=== PATIENT | male | born 1950 | race Caucasian/White ===

== ENCOUNTER 2018-10-24 02:25 | Inpatient (IN) | payer MEDICARE, MEDICAID ==
[~2018-10-24] VITALS: Ht 170.2 cm; Wt 60.8 kg
--- NOTE | 2018-10-24 02:50 | NUR ---
PT BIBPA FOR AGGRESSIVE BEHAVIOR/SPITTING ON STAFF/NON-COMPLIANCE. PT AXO2. RESPIRATIONS EVEN AND UNLABORED. PT PUT ON THE CURRICULUM DEVELOPMENT SPECIALIST AND PULSE OX. PENDING EVAL FROM ER .
--- NOTE | 2018-10-24 02:55 | NUR ---
Pt verbally aggressive, non compliant with giving urine or lab draw. Pt spitting towards staff. ER MD notified.
[2018-10-24] MEDS ORDERED: OLANZAPINE 10 MG VIAL IM ONE ×2 (03:08→03:30)
--- NOTE | 2018-10-24 04:00 | NUR ---
LABS DRAWN AND SENT TO LAB. PT REFUSING URINE SAMPLE. RADHA GALARZA AWARE.
[2018-10-24 04:18] LABS: BASOPHILS % (AUTO) 0.6 % (0.0-2.0); EOSINOPHILS % (AUTO) 4.6 % (0.0-6.0); HEMATOCRIT 34 % (39-51); HEMOGLOBIN 11.6 g/dL (13.5-17.5); LYMPHOCYTES # (AUTO) 0.7 /CMM (0.8-4.8); LYMPHOCYTES % (AUTO) 18.9 % (20.0-44.0); MEAN CORPUSCULAR HGB CONC 34 g/dl (31.0-36.0); MEAN CORPUSCULAR VOLUME 105 fL (80-96); MONOCYTES # (AUTO) 0.5 /CMM (0.1-1.30); MONOCYTES % (AUTO) 14.7 % (2.0-12.0); NEUTROPHILS # (AUTO) 2.3 /CMM (1.8-8.9); NEUTROPHILS % (AUTO) 61.2 % (43.0-81.0); PLATELET COUNT (AUTO) 104 /CMM (150-450); RED BLOOD CELL COUNT(AUTO) 3.25 MIL/uL (4.5-6.0); WHITE BLOOD COUNT (AUTO) 3.7 K/uL (4.3-11.0)
[2018-10-24 04:26] LABS: CALCIUM, SERUM 9.9 mg/dL (8.5-10.1); CARBON DIOXIDE 29 mmol/L (21-32); CHLORIDE 102 mmol/L (98-107); CREATININE 5.2 mg/dL (0.6-1.3); GLUCOSE 87 mg/dL (74-106); POTASSIUM 4.3 mmol/L (3.5-5.1); SODIUM SERUM 140 mmol/L (136-145); UREA NITROGEN, BLOOD 40 mg/dL (7-18)
--- NOTE | 2018-10-24 04:30 | NUR ---
ART PAGED FOR EVALUATION.
[2018-10-24 04:32] LABS: ACETAMINOPHEN 2 ug/ml (10-30); ALANINE AMINOTRANSFERASE 12 U/L (12-78); ALBUMIN 3.3 g/dL (3.4-5.0); ALCOHOL, BLOOD < 3 mg/dL (0-0); ALKALINE PHOSPHATASE 108 U/L (46-116); ASPARTATE AMINOTRANSFERASE 14 U/L (15-37); BILIRUBIN,DIRECT 0.1 mg/dL (0.0-0.2); BILIRUBIN,TOTAL 0.5 mg/dL (0.2-1.0); SALICYLATE 2.1 mg/dL (2.8-20.0); TOTAL PROTEIN, SERUM 6.2 g/dL (6.4-8.2)
--- NOTE | 2018-10-24 04:50 | NUR ---
PT HYPERTENSIVE ON THE MONITOR. ER MD AWARE. WILL CARRY OUT ORDERS.
[2018-10-24] MEDS ORDERED: CLONIDINE HCL 0.1 MG TABLET ONE (05:06)
[2018-10-24] MEDS ORDERED: CLONIDINE HCL 0.1 MG TABLET PO ONE (05:30)
--- NOTE | 2018-10-24 05:45 | NUR ---
PT RESTING IN BED EASILY AROUSABLE, NAD NOTED. WILL CONTINUE TO MONITOR.
--- NOTE | 2018-10-24 07:32 | NUR ---
REPORT GIVEN TO JAYDEN DYER FOR VIKRAM.
--- NOTE | 2018-10-24 07:33 | NUR ---
REPORT RECEIVED FROM YESI DYER FOR VIKRAM
--- NOTE | 2018-10-24 07:39 | NUR ---
LUNA CALLED ITS JANETH
[2018-10-24] MEDS ORDERED: AZIT250T13 PO (07:48)
[2018-10-24] MEDS ORDERED: CARV6.252 PO (07:48)
[2018-10-24] MEDS ORDERED: ASPI-1169 PO (07:48)
[2018-10-24] MEDS ORDERED: FOLI0.8T23 PO (07:48)
[2018-10-24] MEDS ORDERED: IPRA4AER IH (07:48)
[2018-10-24] MEDS ORDERED: AMLO10TA7 PO (07:48)
[2018-10-24] MEDS ORDERED: ALBU8.5H8 IH (07:48)
[2018-10-24] MEDS ORDERED: CLON2TAB PO (07:48)
[2018-10-24] MEDS ORDERED: SEVE800T8 PO (07:48)
[2018-10-24] MEDS ORDERED: ATOR40TA PO (07:48)
[2018-10-24] MEDS ORDERED: RISP0.253 PO (07:48)
[2018-10-24] MEDS ORDERED: OLAN2.5T3 PO (07:48)
[2018-10-24] MEDS ORDERED: CLON0.3P TD (07:48)
[2018-10-24] MEDS ORDERED: ACET-2605 PO (07:49)
[2018-10-24] MEDS ORDERED: PANT40TA2 PO (07:49)
[2018-10-24] MEDS ORDERED: BENZ-13 PO (07:49)
[2018-10-24] MEDS ORDERED: GUAI5SYR PO (07:49)
[2018-10-24] MEDS ORDERED: ACET-868 PO (07:49)
--- NOTE | 2018-10-24 08:48 | NUR ---
PT GOING TO ROOM 322.2
[2018-10-24] MEDS ORDERED: CARVEDILOL 6.25 MG TABLET ONE (08:54)
[2018-10-24] MEDS ORDERED: AMLODIPINE BESYLATE 5 MG TABLET ONE (08:55)
[2018-10-24] MEDS ORDERED: AMLODIPINE BESYLATE 5 MG TABLET PO ONE (09:00)
[2018-10-24] MEDS ORDERED: CARVEDILOL 6.25 MG TABLET PO ONE (09:00)
--- NOTE | 2018-10-24 09:03 | NUR ---
REPORT GIVEN TO THERESE DYER OF TELE UNIT
--- NOTE | 2018-10-24 09:07 | NUR ---
URINE SPECIMEN COLLECTED SENT TO LAB
[2018-10-24 09:27] LABS: APPEARANCE,URINE Clear (CLEAR); BILIRUBIN,URINE Negative (NEGATIVE); BLOOD, URINE Trace-intact Ery/uL (NEGATIVE); COLOR,URINE Yellow (YELLOW); KETONES,URINE Negative (NEGATIVE); LEUKOCYTE ESTERASE ,URINE Trace (NEGATIVE); NITRITE, URINE Negative (NEGATIVE); PH,URINE 8.5 (5.0-8.0); PROTEIN,URINE 100 mg/dl (NEGATIVE); UGLUCOSE Negative (NEGATIVE); UROBILINOGEN,URINE 0.2 EU/dL (0.2)
[2018-10-24 09:29] LABS: BACTERIA,URINE None seen /HPF (None Seen); RBC,URINE 0-2 /HPF (0-2); SQUAMOUS EPITHELIAL CELL,UR Few /HPF (None Seen); WBC,URINE 0-2 /HPF (0-3)
[2018-10-24] MEDS ORDERED: ONDANSETRON HCL/PF 4 MG/2 ML VIAL IVP PRN (10:00)
[2018-10-24] MEDS ORDERED: GUAIFENESIN/D-METHORPHAN HB 5 ML UDC PO PRN (10:00)
[2018-10-24] MEDS ORDERED: ACETAMINOPHEN 325 MG TABLET PO PRN (10:00)
[2018-10-24] MEDS ORDERED: ZOLPIDEM TARTRATE 5 MG TABLET PO PRN (10:00)
[2018-10-24] MEDS ORDERED: Z GUARD REMEDY 2 OZ OINT TP PRN (10:00)
--- NOTE | 2018-10-24 11:03 | NUR ---
DIRECTOR OF HEALTHCARE SYSTEMS ADMITTING NOTES PATIENT ADMITTED TO UNIT VIA GURNEY AT 1000 ACCOMPANIED BY Pawel CARMONA. A/O X3-4. ABLE TO VERBALIZED NEEDS BUT VERBALLY ABUSIVE AND REFUSED TO ANSWER SOME QUESTIONS DURING ADMISSION. PT ORIENTED TO UNIT/ROOM AND STAFF. ON ROOM AIR, TOLERATING WELL WITH NO SOB NOTED. SP02 97%. V/S TAKEN AND RECORDED. PT REFUSED TO PLACE TELEMONITORING AT THIS TIME, WILL TRY AGAIN AT LATER TIME. PT WITH NO C/O CARDIAC DISTRESS VOICED. PHOTOS OF SKIN ISSUES TAKEN AND FILED ON CHART. PT WITH IV ACCESS ON RIGHT HAND G #20 INTACT AND PATENT. PERMA CATH IN PLACE TO RCW, DRESSING C/D/I. ABDOMEN SOFT, NONTENDER AND NON-DISTENDED WITH POSITIVE BOWEL SOUNDS. LUNGS CLEAR BILATERALLY ON AUSCULTATION. SAFETY MEASURES INITIATED. BED PLACED IN LOW LOCKED POSITION WITH SR UP X2. CALL LIGHT IN REACH. WILL CONTINUE TO MONITOR PT CLOSELY.
[2018-10-24] MEDS: VIT B CMPLX 3/FA/VIT C/BIOTIN 1 TAB TABLET PO SCH (11:27)
[2018-10-24 12:00] VITALS: BP 146/85
[2018-10-24 12:45] LABS: MAGNESIUM 1.4 mg/dL (1.8-2.4); PHOSPHORUS 3.6 mg/dL (2.5-4.9)
[2018-10-24] MEDS ORDERED: Medication Not On Formulary EA (Ipratropium/Albuterol Sulfate (Combivent Respimat 20-100 IH SCH (13:00)
[2018-10-24] MEDS: SEVELAMER CARBONATE 800 MG TABLET PO SCH ×2 (13:00→17:17)
[2018-10-24] MEDS: ALBUTEROL FS 2.5 MG/3 ML VIAL.NEB NEB SCH ×2 (13:56→19:30)
[2018-10-24] MEDS: IPRATROPIUM NEB FS 0.5 MG/2.5 ML AMPUL.NEB NEB SCH ×2 (13:56→19:30)
[2018-10-24] MEDS: Magnesium 1GM/D5W 100ML PREMIX 100 ML IV SCH ×2 (15:12→16:13)
[2018-10-24 16:00] VITALS: BP 166/89
--- NOTE | 2018-10-24 16:31 | NUR ---
RN NOTES PATIENT WITH LOW LEVEL MG 1. 4 TODAY, REPLACED WITH MAGNESIUM 1MG/100D5W X 2 DOSES. WILL CONTINUE TO MONITOR
[2018-10-24] MEDS ORDERED: clonazePAM 1 MG TABLET PO SCH ×2 (17:00)
[2018-10-24] MEDS: OLANZAPINE 2.5 MG TABLET PO SCH (17:17)
[2018-10-24] MEDS: CARVEDILOL 6.25 MG TABLET PO SCH (17:18)
--- NOTE | 2018-10-24 17:31 | NUR ---
RN NOTES TRIED AGAIN TO PLACE TELEMONITORING ON PATIENT BUT STILL REFUSING. NO COMPLAINTS OR S/S OF CARDIAC DISTRESS NOTED. ONLINE CONTENT EDITOR VICTORINO MADE AWARE. WILL CONTINUE TO MONITOR PT'S STATUS.
--- NOTE | 2018-10-24 17:46 | NUR ---
RN NOTES CALLED CT SCAN AND SPOKE TO PATY REGARDING PT'S CT OF HEAD WITHOUT CONTRAST AND HE SAID THAT HE WILL DO IT AFTER DINNER.
[2018-10-24] MEDS ORDERED: risperiDONE 1 MG TABLET PO SCH (18:00)
--- NOTE | 2018-10-24 18:39 | NUR ---
LAUNDRY HOUSEKEEPING AIDE CLOSING NOTES PATIENT ASLEEP AT THIS TIME, EASILY AWAKENS. HOB ELEVATED. ON ROOM AIR, TOLERATING WELL WITH NO ACUTE RESPIRATORY DISTRESS NOTED. IV ACCESS ON RIGHT HAND G#20 INTACT AND PATENT, EASILY FLUSHED WITH NS. PERMA CATH ON RCW IN PLACE WITH DRESSING C/D/I. ALL NEEDS AND CARE PROVIDED WELL. ALL SAFETY MEASURES KEPT IN PLACE. BED IN LOW LOCKED POSITION WITH SR UP X2. CALL LIGHT IN REACH. WILL ENDORSE TO PLANNING AND ANALYSIS MANAGER NURSE FOR VIKRAM.
--- NOTE | 2018-10-24 19:45 | NUR ---
rn initial notes: received report from carlota kulkarni. pt in bed, calm at this time after taking medications. on ra respiration even and unlabored. appears calm and comfortable at this time. pt refused heart monitoring as pt admitted for tele, made aware. per report pt admitted with very aggressive behavior, throwing things to the staff, non compliant, seen by psych md with order for 1:1 sitter and medications. per dr tono ovalle aware about the pt regarding nephro consult. ct head done awaiting for result. vs taken and recorded by relays draftsperson. safety precautions for fall initiated, call light in reach, will continue monitoring pt.
--- NOTE | 2018-10-24 19:50 | NUR ---
rn notes: pt refused breathing tx education provided to the pt, denies any sob, respiration even and unlabored
--- NOTE | 2018-10-24 19:57 | NUR ---
RT NOTE PATIENT REFUSED BREATHING TREATMENT AT THIS TIME. PRIMARY NURSE NOTIFIED. NO SIGNS OF RESPIRATORY DISTRESS AT THIS TIME. SPO2 95%. WILL CONTINUE TO MONITOR PATIENT.
[2018-10-24 20:07] VITALS: BP 165/95
--- NOTE | 2018-10-24 21:00 | NUR ---
RN NOTES: PT REFUSED TAKING LIPITOR, EDUCATION PROVIDED TO THE PT
--- NOTE | 2018-10-24 21:42 | NUR ---
RN NOTES: REPORT GIVEN TO ANDREW COLLAZO, FOR TRANSFER TO ROOM 119-1, NETWORK ENGINEER WILL CALL ONCE ROOM IS AVAILABLE/CLEAN.
--- NOTE | 2018-10-24 21:54 | NUR ---
RN NOTES: PT TRANSFERRED TO ROOM 119-2 VIA ACLS PROTOCOL, BROUGHT TO THE ROOM BY BED, ACCOMPANIED BY CRUSHER SCREEN REPAIRER SINGE MACHINE OPERATOR
[2018-10-24] MEDS: ATORVASTATIN 40 MG TABLET PO SCH (21:56)
--- NOTE | 2018-10-24 22:18 | NUR ---
TELE-1/HOTEL ATTENDANT RECEIVED PT IN ROOM 119-2 ACCOMPANIED BY 3W STAFF. PT SLEEPING BUT EASILY AROUSABLE. PT REFUSING TELE MONITOR AND ASSESSMENT AT THIS TIME. 1:1 SITTER AT BEDSIDE FOR PT SAFETY. WILL CONTINUE TO MONITOR CLOSELY.
[2018-10-25] MEDS: IPRATROPIUM NEB FS 0.5 MG/2.5 ML AMPUL.NEB NEB SCH ×4 (01:30→20:25)
[2018-10-25] MEDS: ALBUTEROL FS 2.5 MG/3 ML VIAL.NEB NEB SCH ×4 (01:30→20:25)
[2018-10-25] MEDS: HYDROCODONE/APAP 5/325MG 1 EACH TABLET PO PRN ×3 (02:38→11:11)
[2018-10-25 04:00] VITALS: BP 162/87
--- NOTE | 2018-10-25 07:05 | NUR ---
RN OPENING NOTES RECEIVED PT RESTING IN BED, REFUSING TELE MONITOR. ALERT AND ORIENTED X2. 1:1 SITTER AT BEDSIDE FOR PT SAFETY. IV R HAND 20G H/L, SITE CDI. R CW PERMACATH, SITE CDI. NO PAIN NOTED AT THIS TIME. RR EVEN AND UNLABORED. WILL CONTINUE TO MONITOR CLOSELY.
[2018-10-25 07:29] LABS: BASOPHILS % (AUTO) 0.5 % (0.0-2.0); EOSINOPHILS % (AUTO) 3.7 % (0.0-6.0); HEMATOCRIT 31 % (39-51); HEMOGLOBIN 10.7 g/dL (13.5-17.5); LYMPHOCYTES # (AUTO) 0.7 /CMM (0.8-4.8); LYMPHOCYTES % (AUTO) 19.2 % (20.0-44.0); MEAN CORPUSCULAR HGB CONC 34 g/dl (31.0-36.0); MEAN CORPUSCULAR VOLUME 104 fL (80-96); MONOCYTES # (AUTO) 0.5 /CMM (0.1-1.30); MONOCYTES % (AUTO) 13.4 % (2.0-12.0); NEUTROPHILS # (AUTO) 2.2 /CMM (1.8-8.9); NEUTROPHILS % (AUTO) 63.2 % (43.0-81.0); PLATELET COUNT (AUTO) 108 /CMM (150-450); RED BLOOD CELL COUNT(AUTO) 3.02 MIL/uL (4.5-6.0); WHITE BLOOD COUNT (AUTO) 3.5 K/uL (4.3-11.0)
[2018-10-25 07:44] LABS: CALCIUM, SERUM 10.1 mg/dL (8.5-10.1); MAGNESIUM 2.2 mg/dL (1.8-2.4); PHOSPHORUS 3.8 mg/dL (2.5-4.9); POTASSIUM 4.8 mmol/L (3.5-5.1)
[2018-10-25 07:45] LABS: CREATININE 7.5 mg/dL (0.6-1.3)
[2018-10-25 08:00] VITALS: BP 162/90
[2018-10-25] MEDS: PANTOPRAZOLE 40 MG TABLET.DR PO SCH (08:25)
[2018-10-25] MEDS: CARVEDILOL 6.25 MG TABLET PO SCH ×2 (08:26→16:47)
[2018-10-25] MEDS: SEVELAMER CARBONATE 800 MG TABLET PO SCH ×3 (08:26→17:10)
[2018-10-25] MEDS: ASPIRIN 81 MG TAB.CHEW PO SCH (08:26)
[2018-10-25] MEDS: AMLODIPINE BESYLATE 10 MG TABLET PO SCH (08:26)
[2018-10-25] MEDS: VIT B CMPLX 3/FA/VIT C/BIOTIN 1 TAB TABLET PO SCH (08:26)
--- NOTE | 2018-10-25 09:15 | NUR ---
RESORT DESK CLERK NOTES DC TELEMETRY PER DR. NEW.
--- NOTE | 2018-10-25 09:20 | NUR ---
RN NOTES PAGED JANETH GLEASON NP FOR PATIENT'S ABNORMAL LAB. AWAITING FOR RESPONSE.
--- NOTE | 2018-10-25 09:40 | NUR ---
RN MS NOTES PAGED DR. AMIN FOR CLARIFICATION OF ORDER KLONIPIN 1MG 3X/DAY AND ZYPREXA 5MG IM Q6H NEEDED. AWAITING FOR RESPONSE.
[2018-10-25] MEDS: OLANZAPINE 2.5 MG TABLET PO SCH (09:56)
[2018-10-25] MEDS: clonazePAM 1 MG TABLET PO SCH ×2 (13:12→16:47)
[2018-10-25 16:00] VITALS: BP 161/92
[2018-10-25] MEDS: risperiDONE 0.25 MG TABLET PO SCH (16:48)
--- NOTE | 2018-10-25 18:00 | NUR ---
MS RN NOTES HEMODIALYSIS AT BEDSIDE. WILL CONT TO MONITOR PT.
--- NOTE | 2018-10-25 19:06 | NUR ---
MS RN CLOSING NOTES PT RESTING IN BED, ALERT AND ORIENTED X2. 1:1 SITTER AT BEDSIDE FOR PT SAFETY. IV R HAND 20G H/L, SITE CDI. HEMODIALYSIS CURRENTLY AT BEDSIDE. NO PAIN NOTED AT THIS TIME. RR EVEN AND UNLABORED. SAFETY MEASURES PLACED THROUGHOUT SHIFT. ALL MD ORDERS ATTENDED. ENDORSED TO EDUCATIONAL MANAGER NURSE FOR VIKRAM.
[2018-10-25 20:00] VITALS: BP 169/92
[2018-10-25] MEDS: ATORVASTATIN 40 MG TABLET PO SCH (21:56)
[2018-10-25] MEDS ORDERED: risperiDONE 1 MG TABLET PO SCH (22:00)
[2018-10-26] MEDS: IPRATROPIUM NEB FS 0.5 MG/2.5 ML AMPUL.NEB NEB SCH ×4 (01:30→19:30)
[2018-10-26] MEDS: ALBUTEROL FS 2.5 MG/3 ML VIAL.NEB NEB SCH ×4 (01:30→19:30)
--- NOTE | 2018-10-26 06:50 | NUR ---
MS-1/ZAY PT REFUSING LAB DRAW.
[2018-10-26] MEDS: clonazePAM 1 MG TABLET PO SCH ×5 (08:49→17:15)
[2018-10-26] MEDS: VIT B CMPLX 3/FA/VIT C/BIOTIN 1 TAB TABLET PO SCH (08:49)
[2018-10-26] MEDS: SEVELAMER CARBONATE 800 MG TABLET PO SCH ×4 (08:49→18:00)
[2018-10-26] MEDS: risperiDONE 0.25 MG TABLET PO SCH ×3 (08:50→17:15)
[2018-10-26] MEDS: ASPIRIN 81 MG TAB.CHEW PO SCH (08:51)
[2018-10-26] MEDS: PANTOPRAZOLE 40 MG TABLET.DR PO SCH (08:56)
[2018-10-26] MEDS: HYDROCODONE/APAP 5/325MG 1 EACH TABLET PO PRN ×2 (09:33→19:33)
[2018-10-26] MEDS: AMLODIPINE BESYLATE 10 MG TABLET PO SCH (09:42)
[2018-10-26] MEDS: CARVEDILOL 6.25 MG TABLET PO SCH ×2 (09:42→17:00)
--- NOTE | 2018-10-26 16:44 | NUR ---
MS RN NOTE PATIENT REFUSED TO TAKE 1300 MEDS RENVELA AND KLONIPIN. RN ATTEMPTED Q 30 MINUTES TO CONVINCE PATIENT TO TAKE MEDICATIONS. PATIENT STILL REFUSING AT THIS TIME. PATIENT ALSO REFUSED 1600 VITAL SIGNS.
--- NOTE | 2018-10-26 19:15 | NUR ---
RN M/S NOTE PATIENT IS RESTING IN BED, AOX1-2, CONFUSED, SPEECH CLEAR, ON ROOM AIR, DENIES ANY CARDIAC OR RESPIRATORY DISTRESS, R HAND #20G SL, PATENT FLUSHING WELL, RCW PERMACATH, SAFETY MAINTAINED AT ALL TIMES, BED IN LOW LOCKED POSITION, WILL CONTINUE TO MONITOR FOR ANY CHANGES.
--- NOTE | 2018-10-26 19:53 | NUR ---
MS RN CLOSING NOTE PT RESTING IN BED, ALERT AND ORIENTED X2. NO SOB OR OTHER DISTRESS NOTED. AFEBRILE. IV R HAND 20G SL INTACT AND PATENT. PATIENT REFUSED SOME OF HIS MEDICATIONS TODAY AND 1600 VITALS. PATIENT CONTINUES TO MAKE INAPPROPRIATE VERBAL STATEMENTS. NO AGGRESSIVE BEHAVIOR NOTED TODAY. SAFETY MEASURES PLACED THROUGHOUT SHIFT. ALL MD ORDERS ATTENDED. CARE ENDORSED TO STYLE ADVISOR RN.
[2018-10-26 20:00] VITALS: BP 130/63
[2018-10-26] MEDS: ATORVASTATIN 40 MG TABLET PO SCH (21:26)
[2018-10-26] MEDS ORDERED: risperiDONE 1 MG TABLET PO SCH (22:00)
[2018-10-27] MEDS: IPRATROPIUM NEB FS 0.5 MG/2.5 ML AMPUL.NEB NEB SCH ×4 (01:30→19:48)
[2018-10-27] MEDS: ALBUTEROL FS 2.5 MG/3 ML VIAL.NEB NEB SCH ×4 (01:30→19:48)
[2018-10-27] MEDS: PANTOPRAZOLE 40 MG TABLET.DR PO SCH (07:49)
[2018-10-27] MEDS: clonazePAM 1 MG TABLET PO SCH ×3 (07:50→16:18)
[2018-10-27 08:00] VITALS: BP 169/94
[2018-10-27] MEDS: SEVELAMER CARBONATE 800 MG TABLET PO SCH ×3 (08:02→18:00)
[2018-10-27] MEDS: VIT B CMPLX 3/FA/VIT C/BIOTIN 1 TAB TABLET PO SCH (09:28)
[2018-10-27] MEDS: AMLODIPINE BESYLATE 10 MG TABLET PO SCH (09:31)
[2018-10-27] MEDS: CARVEDILOL 6.25 MG TABLET PO SCH ×2 (09:31→16:21)
[2018-10-27] MEDS: risperiDONE 0.25 MG TABLET PO SCH ×3 (09:32→16:21)
[2018-10-27] MEDS: ASPIRIN 81 MG TAB.CHEW PO SCH (09:32)
[2018-10-27 09:46] LABS: BASOPHILS % (AUTO) 0.5 % (0.0-2.0); EOSINOPHILS % (AUTO) 4.5 % (0.0-6.0); HEMATOCRIT 33 % (39-51); HEMOGLOBIN 11.2 g/dL (13.5-17.5); LYMPHOCYTES # (AUTO) 0.7 /CMM (0.8-4.8); LYMPHOCYTES % (AUTO) 15.4 % (20.0-44.0); MEAN CORPUSCULAR HGB CONC 34 g/dl (31.0-36.0); MEAN CORPUSCULAR VOLUME 104 fL (80-96); MONOCYTES # (AUTO) 0.5 /CMM (0.1-1.30); MONOCYTES % (AUTO) 10.1 % (2.0-12.0); NEUTROPHILS # (AUTO) 3.3 /CMM (1.8-8.9); NEUTROPHILS % (AUTO) 69.5 % (43.0-81.0); PLATELET COUNT (AUTO) 109 /CMM (150-450); RED BLOOD CELL COUNT(AUTO) 3.13 MIL/uL (4.5-6.0); WHITE BLOOD COUNT (AUTO) 4.8 K/uL (4.3-11.0)
[2018-10-27 09:57] LABS: CALCIUM, SERUM 10.6 mg/dL (8.5-10.1); PHOSPHORUS 4.1 mg/dL (2.5-4.9)
--- NOTE | 2018-10-27 09:58 | NUR ---
WOUND CARE CONSULT: PT PRESENTS WITH BLANCHABLE REDNESS TO SACRUM AND SKIN STAINING OF BUTTOCKS, PRESENT ON ADMISSION. PT ABLE TO ASSIST WITH TURNING AND REPOSITIONING IN BED BUT STATES HAS DISCOMFORT AT RT HIP. RECOMMENDATIONS MADE FOR SKIN PROTECTION. DISCUSSED WITH NURSING STAFF. CURRENT JEREMY SCORE IS 13. PT ON LEWIS ISOFLEX LOW AIRLOSS BED. WILL SEE PRN. GALARZA IN AGREEMENT WITH PLAN OF CARE. Addendum: 10/27/18 at 1000 by AFUA GARRETT WNDNU Amended: Links added.
[2018-10-27] MEDS ORDERED: clonazePAM 0.5 MG TABLET PO PRN (10:00)
--- NOTE | 2018-10-27 13:27 | NUR ---
MS RN OPENING NOTE PT RECEIVED RESTING IN BED, ALERT AND ORIENTED X2. NO SOB OR OTHER DISTRESS NOTED. AFEBRILE. IV R HAND 20G SL INTACT AND PATENT. SAFETY MEASURES PLACE THROUGHOUT SHIFT. ALL MD ORDERS ATTENDED. CARE ENDORSED TO UNION LABORER RN.
[2018-10-27] MEDS ORDERED: NEPRO VAN 237 ML CAN PO PRN (13:30)
[2018-10-27] MEDS: HYDROCODONE/APAP 5/325MG 1 EACH TABLET PO PRN ×2 (14:53→21:26)
[2018-10-27 16:00] VITALS: BP_SYST 150; BP_SYST 177; BP_DIAS 66; BP_DIAS 86
[2018-10-27] MEDS: OLANZAPINE 10 MG VIAL IM PRN (17:43)
--- NOTE | 2018-10-27 18:35 | NUR ---
MS RN NOTE PATIENT PULLED OUT HIS IV SL AT APPROXIMATELY 1645. PATIENT WAS IRATE, VERBALLY ABUSIVE, AND REFUSED TO HAVE IV REPLACED.
--- NOTE | 2018-10-27 18:37 | NUR ---
MS RN NOTE PATIENT REFUSED DIALYSIS TREATMENT AND CONTINUES IRATE AND VERBALLY ABUSIVE BEHAVIOR. MD NOTIFIED. MD ORDERED MEDICATION ZYPREXA TO BE ADMINISTRED 90 MINUTES BEFORE HD TO BE STARTED. DIALYSIS TO BE ATTEMPTED AGAIN AFTER DIALYSIS NURSE COMPLETES TREATMENT WITH ANOTHER PATIENT.
--- NOTE | 2018-10-27 19:51 | NUR ---
MS RN OPENING NOTES: RECEIVED PT ON ROOM AIR AND IS TOLERATING WELL. PT APPEARS TO BE CONFUSED AND HE IS RAMBLING IN TANGENTS. NO SOB NOTED. NO S/S OF DISTRESS. PT HAS NO IV AT THIS TIME. OFFERED TO START AN IV AND PT IS REFUSING. PT HAS DIALYSIS CATH ON RIGHT UPPER CHEST WALL AND KEPT CLEAN AND DRY. BED KEPT IN LOW, LOCKED POSITION, AND SIDE RAILS X 3 UP. WILL CONTINUE TO MONITOR PT.
--- NOTE | 2018-10-27 19:57 | NUR ---
MS RN CLOSING NOTE PT RESTING IN BED, ALERT AND ORIENTED X2. NO SOB OR OTHER DISTRESS NOTED. AFEBRILE. PATIENT REMAINS CONFUSED AND RAMBLING NON-SENSICAL. PATIENT REFUSED DIALYSIS AND REPLACEMENT OF THE IV SL HE PULLED OUT. PATIENT SHOWS OCCASSIONAL SIGNS OF AGGRESSIVE BEHAVIOR. SAFETY MEASURES PLACE THROUGHOUT SHIFT. BED IN LOW LOCKED POSITION, SAFETY MEASURES IN PLACE. CARE ENDORSED TO MACHINE STONE POLISHER RN.
[2018-10-27 20:00] VITALS: BP 156/90
[2018-10-27] MEDS: risperiDONE 1 MG TABLET PO SCH (21:21)
[2018-10-27] MEDS: ATORVASTATIN 40 MG TABLET PO SCH (21:21)
--- NOTE | 2018-10-27 21:28 | NUR ---
MS RN NOTES: PT COMPLAINING OF R KNEE PAIN. PT WAS ADMINISTERED NORCO 5 PO. WILL CONTINUE TO MONITOR.
[2018-10-28] MEDS: HYDROCODONE/APAP 5/325MG 1 EACH TABLET PO PRN ×3 (01:26→10:16)
[2018-10-28] MEDS: IPRATROPIUM NEB FS 0.5 MG/2.5 ML AMPUL.NEB NEB SCH ×4 (01:32→19:21)
[2018-10-28] MEDS: ALBUTEROL FS 2.5 MG/3 ML VIAL.NEB NEB SCH ×4 (01:32→19:21)
--- NOTE | 2018-10-28 01:34 | NUR ---
MS RN NOTES: PT POINTING AT HIS R HIP/THIGH AREA AND IS COMPLAINING OF 6/10 PAIN. PT WAS ADMINISTERED NORCO 5 PO. WILL CONTINUE TO MONITOR.
[2018-10-28 03:00] VITALS: BP 173/92
[2018-10-28] MEDS ORDERED: OLANZAPINE 10 MG VIAL IM ONE (03:03)
[2018-10-28] MEDS: OLANZAPINE 10 MG VIAL IM PRN (03:05)
--- NOTE | 2018-10-28 03:05 | NUR ---
MS RN NOTES: PT VERY AGITATED AND WILL NOT COMPLY WITH CARE. PT ATTEMPTING TO GET OUT OF BED AND IS DISPLAYING AGGRESSIVE BEHAVIOR. PT WAS ADMINISTERED ZYPREXA 5MG IM. WILL CONTINUE TO MONITOR.
[2018-10-28 04:00] VITALS: BP 174/89
--- NOTE | 2018-10-28 05:21 | NUR ---
MS RN NOTES: INFORMED CHRONOMETER ADJUSTER RUDDY PRAKASH ABOUT PT BEING AGITATED, GETTING OUT OF BED, DISPLAYING AGGRESSIVE BEHAVIOR, EVEN AFTER PT GETTING ZYPREXA 5MG IM AT 0305. PT ALSO HAS A SITTER ORDER BUT NO SITTER AVAILABLE D/T STAFFING ISSUES. GOT ORDER FOR BILATERAL SOFT WRIST RESTRAINTS.
[2018-10-28 05:50] VITALS: BP 175/91
--- NOTE | 2018-10-28 06:01 | NUR ---
MS RN NOTES: PT COMPLAINING OF 10/10 R LEG PAIN. PT WAS ADMINISTERED NORCO 5 PO. WILL CONTINUE TO MONITOR.
--- NOTE | 2018-10-28 06:31 | NUR ---
MS RN CLOSING NOTES: ALL NEEDS WERE ATTENDED AND ANTICIPATED FOR. PT REFUSING TO HAVE IV INSERTED AT THIS TIME. PT AGITATED AT THIS TIME AND KEEPS KICKING. PT HAS BILATERAL SOFT WRIST RESTRAINTS ORDERED (NEW ORDER) THERE IS NO SITTER AVAILABLE. PT HAS NO IV AT THIS TIME. PT CURSING AND KICKING. PT VERY NON-COMPLIANT, CONFUSED, AND DELUSIONAL. PT HAS RCW PERMACATH AND IS INTACT. PT REORIENTED MULTIPLE TIMES. PT KEPT CLEAN AND DRY. BED KEPT IN LOW, LOCKED POSITION, AND SIDE RAILS X 2UP. WILL ENDORSE TO AM NURSE FOR VIKRAM.
[2018-10-28 06:54] LABS: BASOPHILS % (AUTO) 0.5 % (0.0-2.0); EOSINOPHILS % (AUTO) 4.9 % (0.0-6.0); HEMATOCRIT 32 % (39-51); HEMOGLOBIN 11.1 g/dL (13.5-17.5); LYMPHOCYTES # (AUTO) 0.8 /CMM (0.8-4.8); LYMPHOCYTES % (AUTO) 20.1 % (20.0-44.0); MEAN CORPUSCULAR HGB CONC 35 g/dl (31.0-36.0); MEAN CORPUSCULAR VOLUME 103 fL (80-96); MONOCYTES # (AUTO) 0.5 /CMM (0.1-1.30); MONOCYTES % (AUTO) 13.2 % (2.0-12.0); NEUTROPHILS # (AUTO) 2.5 /CMM (1.8-8.9); NEUTROPHILS % (AUTO) 61.3 % (43.0-81.0); PLATELET COUNT (AUTO) 106 /CMM (150-450); RED BLOOD CELL COUNT(AUTO) 3.12 MIL/uL (4.5-6.0); WHITE BLOOD COUNT (AUTO) 4.1 K/uL (4.3-11.0)
[2018-10-28 06:59] LABS: CALCIUM, SERUM 10.5 mg/dL (8.5-10.1); MAGNESIUM 2.1 mg/dL (1.8-2.4); PHOSPHORUS 4.9 mg/dL (2.5-4.9); POTASSIUM 6.1 mmol/L (3.5-5.1)
--- NOTE | 2018-10-28 07:00 | NUR ---
RN AM SHIFT NOTE RN AM SHIFT NOTE PATIENT AWAKE BUT CONUFUSED. RESTRIANTS IN PLACE, PATIENT WAS COMBATIVE ALL SHIFT. SENSORY FUNCTION AND CIRCULATION ASSESSED WHILE ON RESTREAINTS PER PROTOCAL. NIGHT NURSE ENDORSED PATIENT REFUSED DIALYSIS, F/U TO SEE IF DIALYSIS WILL BE DONE TODAY. ELEVATED LAB VALUES, MD AWARE NO NEW ORDERS AT THIS TIME. BLOOD PRESSURE MEDICATION GIVEN PER MD ORDER. SAFETY MEASURES IN PLACE, CONTINUE TO MONITOR.
[2018-10-28 07:04] LABS: CREATININE 9.6 mg/dL (0.6-1.3)
[2018-10-28 08:00] VITALS: BP 197/101
[2018-10-28] MEDS: CARVEDILOL 6.25 MG TABLET PO SCH ×2 (08:24→17:58)
[2018-10-28] MEDS: SEVELAMER CARBONATE 800 MG TABLET PO SCH ×3 (08:24→17:57)
[2018-10-28] MEDS: ASPIRIN 81 MG TAB.CHEW PO SCH (08:25)
[2018-10-28] MEDS: AMLODIPINE BESYLATE 10 MG TABLET PO SCH (08:25)
[2018-10-28] MEDS: clonazePAM 1 MG TABLET PO SCH ×3 (08:25→17:57)
[2018-10-28] MEDS: risperiDONE 0.25 MG TABLET PO SCH ×2 (08:25→12:37)
[2018-10-28] MEDS: PANTOPRAZOLE 40 MG TABLET.DR PO SCH (08:26)
[2018-10-28] MEDS: VIT B CMPLX 3/FA/VIT C/BIOTIN 1 TAB TABLET PO SCH (08:26)
--- NOTE | 2018-10-28 11:30 | NUR ---
RN NOTES RECEIVED PT ON BED, ALERT/ CONFUSED , ON RA , RESPIRATION EVEN AND UNLABORED, NO SOB NOTED,PT TRIES TO GET OUT OF BED, SAUL WRIST RESTRAINS ON FOR PT SAFETY, BED ALARM ON , R CHEST WALL PER MA CATH SITE CLEAN , DRY AND INTACT , SR UP x3, BED LOCKED AND IN LOWEST POSITION, CONTINUE TO MONITOR .
[2018-10-28 16:00] VITALS: BP 165/88
--- NOTE | 2018-10-28 17:13 | NUR ---
RN NOTES PT IS RECEIVING HD AT THIS TIME
--- NOTE | 2018-10-28 18:30 | NUR ---
RN NOTES PT MORE COOPERATIVE AND LESS AGITATED, R ARM RESTRAIN RELEASED , BED ALARM ON , WILL ENDOSE TO MANAGER REGULATORY NURSE FOR CONTINUITY OF CARE.
--- NOTE | 2018-10-28 19:10 | NUR ---
MS/RN INITIAL NOTES RECEIVED PT IN BED, ASLEEP BUT AROUSABLE TO NAME AND LIGHT TOUCH. ON ROOM AIR, APPEARS CONFUSED. RCHEST WALL HD CATH C/D/I. NO IV ACCESS PT REFUSED PER AM RN ENDORSEMENT. NOTED WITH L SOFT WRIST RESTRAINT, SKIN INTACT AND NO COMPROMISE CIRCULATION NOTED. PT IS FOR TRIAL OFF RESTRAINT FOR D/C PLANNING IN AM. HOB ELEVATED. SAFETY MEASURES IN PLACED. CALL LIGHT WITHIN EASY REACH. WILL CONT TO MONITOR
[2018-10-28 20:00] VITALS: BP 148/89
--- NOTE | 2018-10-28 20:00 | NUR ---
RN NOTES OFFERED TO START IV ACCESS TO PT, PT STRONGLY REFUSED. EXPLAINED RISKS AND BENEFITS. STILL PT STRONGLY REFUSED. WILL OFFER AGAIN LATER
--- NOTE | 2018-10-28 21:00 | NUR ---
RN NOTES PT ASLEEP, APPEARS CALM. L SOFT WRIST RESTRAINT REMOVED. BED ALARM ON. SAFETY MEASURES IN PLACED. WILL CONT TO MONITOR
[2018-10-28] MEDS: DIVALPROEX SODIUM 250 MG TABLET.DR PO SCH (21:52)
[2018-10-28] MEDS: ATORVASTATIN 40 MG TABLET PO SCH (21:52)
[2018-10-28] MEDS: risperiDONE 1 MG TABLET PO SCH (21:52)
[2018-10-29] MEDS: ALBUTEROL FS 2.5 MG/3 ML VIAL.NEB NEB SCH ×3 (01:03→14:30)
[2018-10-29] MEDS: IPRATROPIUM NEB FS 0.5 MG/2.5 ML AMPUL.NEB NEB SCH ×3 (01:03→14:30)
[2018-10-29 04:00] VITALS: BP 158/87
--- NOTE | 2018-10-29 07:02 | NUR ---
RN NOTES PT IN STABLE CONDITION. NO ACUTE CHANGES THROUGHOUT SHIFT. NO OVERT SIGNS OF BLEEDING NOTED. ALL NEEDS ANTICIPATED. SAFETY MEASURES OBSERVED AT ALL TIMES. ENDORSED TO AM RN FOR VIKRAM
[2018-10-29 08:00] VITALS: BP 168/92
[2018-10-29] MEDS: risperiDONE 0.25 MG TABLET PO SCH ×2 (10:21→17:42)
[2018-10-29] MEDS: ASPIRIN 81 MG TAB.CHEW PO SCH (10:22)
[2018-10-29] MEDS: PANTOPRAZOLE 40 MG TABLET.DR PO SCH (10:22)
[2018-10-29] MEDS: SEVELAMER CARBONATE 800 MG TABLET PO SCH ×3 (10:24→17:43)
[2018-10-29] MEDS: VIT B CMPLX 3/FA/VIT C/BIOTIN 1 TAB TABLET PO SCH (10:25)
[2018-10-29] MEDS: DIVALPROEX SODIUM 250 MG TABLET.DR PO SCH (10:25)
[2018-10-29] MEDS: clonazePAM 1 MG TABLET PO SCH ×3 (10:26→17:42)
[2018-10-29] MEDS: AMLODIPINE BESYLATE 10 MG TABLET PO SCH (11:05)
[2018-10-29] MEDS: CARVEDILOL 6.25 MG TABLET PO SCH ×2 (11:06→17:42)
[2018-10-29 15:36] VITALS: BP 138/76
[2018-10-29 16:00] VITALS: BP 138/76
[2018-10-29] MEDS ORDERED: RISP0.253 PO (16:14)
[2018-10-29] MEDS ORDERED: CLON1TAB12 PO (16:14)
[2018-10-29] MEDS ORDERED: RISP1TAB7 PO (16:14)
[2018-10-29] MEDS ORDERED: DIVA250T4 PO (16:14)
[2018-10-29] MEDS ORDERED: OLAN10VI IM (16:14)
[2018-10-29] MEDS ORDERED: Nepro PO (16:14)
[2018-10-29 17:42] VITALS: BP 138/76
--- NOTE | 2018-10-29 18:45 | NUR ---
RN NOTE PT DISCHARGED TO [facility] VIA AMBULANCE, IN STABLE CONDITION, NO IV SITE, R CW HD CATH IN PLACE, REPORT GIVEN TO TESFAYE AT [facility]. DISCHARGE INSTRUCTIONS PROVIDEDTO PT, EXIT CARE DONE, BELONGINGS LIST SIGNED AND PROVIDED TO THE PT. PICTURES TAKEN AND LEFT IN CHART.
== END 2018-10-29 19:53 | DRG 808 ==
LOC: ER 02:31 → TELE 08:52 → TELE1 21:56 → MEDSG1 10-25 09:04
PROVIDERS: ADMIT Hospitalist; ATTEND Registered Nurse
PROC: 5A1D70Z Performance of Urinary Filtration, Intermittent, Less than 6 Hours Per Day (ICD-10-PCS; principal; 2018-10-25)
PROC: 5A1D70Z Performance of Urinary Filtration, Intermittent, Less than 6 Hours Per Day (ICD-10-PCS; 2018-10-27)
PROC: 5A1D70Z Performance of Urinary Filtration, Intermittent, Less than 6 Hours Per Day (ICD-10-PCS; 2018-10-28)
DX: D61.818 Other pancytopenia (principal); N18.6 End stage renal disease; I12.0 Hypertensive chronic kidney disease with stage 5 chronic kidney disease or end stage renal disease; E44.1 Mild protein-calorie malnutrition; E87.1 Hypo-osmolality and hyponatremia; Z99.2 Dependence on renal dialysis; E83.42 Hypomagnesemia; E78.5 Hyperlipidemia, unspecified; F25.9 Schizoaffective disorder, unspecified; F01.50 Vascular dementia, unspecified severity, without behavioral disturbance, psychotic disturbance, mood disturbance, and anxiety; F32.9 Major depressive disorder, single episode, unspecified; Z68.21 Body mass index [BMI] 21.0-21.9, adult; Z91.19 Patient's noncompliance with other medical treatment and regimen; Z91.15 Patient's noncompliance with renal dialysis; D64.9 Anemia, unspecified; R45.1 Restlessness and agitation
CPT/HCPCS: 36415; 70450-TC; 80048-TC; 80061-TC; 80076-TC; 80305; 81000-TC; 83735-TC; 84100-TC; 85025-TC; 86706; 87081-TC; 87340; 90935-TC; G0378; G0480; J3475; J3490

== ENCOUNTER 2019-02-13 19:12 | Emergency (ER) | payer MEDICARE, MEDICAID ==
[~2019-02-13] VITALS: Ht 170.2 cm; Wt 72.6 kg
[~2019-02-13 19:12] MED LIST: ACET-2605 PO; ACET-868 PO; ALBU8.5H8 IH; AMLO10TA7 PO; ASPI-1169 PO; ATOR40TA PO; BENZ-13 PO; CARV6.252 PO; CLON1TAB12 PO; DIVA250T4 PO; FOLI0.8T23 PO; GUAI5SYR PO; IPRA4AER IH; Nepro PO; OLAN10VI IM; OLAN2.5T3 PO; PANT40TA2 PO; RISP0.253 PO; RISP1TAB7 PO; SEVE800T8 PO
--- NOTE | 2019-02-13 19:35 | NUR ---
MAICOL FROM [facility] FOR AGGRESSIVE BEHAVIOR TOWARD STAFF MEMBERS. NOTED INCREASED AGITATION WHILE SPEAKING WITH PT. PT AAOX4. RESPIRATIONS EVEN AND UNLABORED. SKIN INTACT. SITTER AT BEDSIDE. WILL CONTINUE TO MONITOR
--- NOTE | 2019-02-13 19:39 | NUR ---
FRUIT HARVEST WORKER AT BEDSIDE FOR BLOOD DRAW
[2019-02-13 19:42] LABS: BASOPHILS % (AUTO) 0.4 % (0.0-2.0); EOSINOPHILS % (AUTO) 3.1 % (0.0-6.0); HEMATOCRIT 33 % (39-51); HEMOGLOBIN 11.1 g/dL (13.5-17.5); LYMPHOCYTES # (AUTO) 0.5 /CMM (0.8-4.8); LYMPHOCYTES % (AUTO) 5.7 % (20.0-44.0); MEAN CORPUSCULAR HGB CONC 34 g/dl (31.0-36.0); MEAN CORPUSCULAR VOLUME 110 fL (80-96); MONOCYTES % (AUTO) 10.5 % (2.0-12.0); NEUTROPHILS # (AUTO) 7.3 /CMM (1.8-8.9); NEUTROPHILS % (AUTO) 80.3 % (43.0-81.0); PLATELET COUNT (AUTO) 127 /CMM (150-450); RED BLOOD CELL COUNT(AUTO) 2.98 MIL/uL (4.5-6.0); WHITE BLOOD COUNT (AUTO) 9.1 K/uL (4.3-11.0)
[2019-02-13 19:51] LABS: CALCIUM, SERUM 9.5 mg/dL (8.5-10.1); CARBON DIOXIDE 27 mmol/L (21-32); CHLORIDE 101 mmol/L (98-107); CREATININE 7.4 mg/dL (0.6-1.3); GLUCOSE 135 mg/dL (74-106); POTASSIUM 4.6 mmol/L (3.5-5.1); SODIUM SERUM 139 mmol/L (136-145); UREA NITROGEN, BLOOD 48 mg/dL (7-18)
[2019-02-13] MEDS ORDERED: BENZ1TAB7 PO (19:51)
[2019-02-13] MEDS ORDERED: ATOR40TA GT (19:51)
[2019-02-13] MEDS ORDERED: OXYB5TAB11 PO (19:51)
[2019-02-13] MEDS ORDERED: DOCU-141 PO (19:51)
[2019-02-13] MEDS ORDERED: ERGO500040 PO (19:51)
[2019-02-13] MEDS ORDERED: FERR325T23 PO (19:51)
[2019-02-13] MEDS ORDERED: CLON0.3T PO (19:51)
[2019-02-13 19:56] LABS: ACETAMINOPHEN 0 ug/ml (10-30); ALANINE AMINOTRANSFERASE 21 U/L (12-78); ALBUMIN 3.1 g/dL (3.4-5.0); ALCOHOL, BLOOD < 3 mg/dL (0-0); ALKALINE PHOSPHATASE 85 U/L (46-116); ASPARTATE AMINOTRANSFERASE 15 U/L (15-37); BILIRUBIN,DIRECT 0.2 mg/dL (0.0-0.2); BILIRUBIN,TOTAL 0.5 mg/dL (0.2-1.0); SALICYLATE 1.5 mg/dL (2.8-20.0); TOTAL PROTEIN, SERUM 6.1 g/dL (6.4-8.2)
--- NOTE | 2019-02-13 20:14 | NUR ---
PT UNABLE TO PROVIDE URINE SAMPLE AT THIS TIME. MD WHARTON
--- NOTE | 2019-02-13 20:21 | NUR ---
PROVIDED PT WITH SANDWICH AND WATER. PT RESTING COMFORTABLY IN BED. CALM AND COOPERATIVE. SITTER AT BEDSIDE.
--- NOTE | 2019-02-13 20:45 | NUR ---
PER CRISIS TEAM, PT CLEARED TO RETURN TO FACILITY
--- NOTE | 2019-02-13 21:02 | NUR ---
CALLED [facility] FOR TRANSPORTATION, ETA [phone]
--- NOTE | 2019-02-13 21:51 | NUR ---
PT RESTING COMFORTABLY IN BED. CALM AND COOPERATIVE. VITAL SIGNS STABLE. WILL CONTINUE TO MONITOR
--- NOTE | 2019-02-13 22:42 | NUR ---
GAVE REPORT TO LALITA FOR TRANSPORTATION VIKRAM. ATTEMPTED TO CALL [facility] TO INFORM PT RETURNING 2X, NO ANSWER. LEFT MESSAGE.
[2019-02-13 22:49] VITALS: BP 150/85
== END 2019-02-13 22:50 | disposition home or self-care (01) ==
LOC: ER 19:17
DX: R45.1 Restlessness and agitation (principal); R60.0 Localized edema; I12.0 Hypertensive chronic kidney disease with stage 5 chronic kidney disease or end stage renal disease; N18.6 End stage renal disease; Z99.2 Dependence on renal dialysis; I25.2 Old myocardial infarction; J45.909 Unspecified asthma, uncomplicated; K21.9 Gastro-esophageal reflux disease without esophagitis; F41.9 Anxiety disorder, unspecified; F32.9 Major depressive disorder, single episode, unspecified; F20.9 Schizophrenia, unspecified; D64.9 Anemia, unspecified; Z98.890 Other specified postprocedural states; Z88.8 Allergy status to other drugs, medicaments and biological substances; Z79.899 Other long term (current) drug therapy; Z79.82 Long term (current) use of aspirin
CPT/HCPCS: 36415; 80048; 80076; 80307; 80329; 85025; 99284; G0480

== ENCOUNTER 2019-04-03 15:17 | Inpatient (IN) | payer MEDICARE, MEDICAID ==
[~2019-04-03] VITALS: Ht 172.7 cm; Wt 68.5 kg
[~2019-04-03 15:17] MED LIST changes: +ATOR40TA GT; +BENZ1TAB7 PO; +CLON0.3T PO; +DOCU-141 PO; +ERGO500040 PO; +FERR325T23 PO; +OXYB5TAB11 PO
--- NOTE | 2019-04-03 15:24 | NUR ---
PT BIBPA FROM [facility] C/O BILATERAL ARM SWELLING, PT IS AAOX1, NOT IN RESPIRATORY DISTRESS, HOOKED TO PLUNGER SHOVEL OPERATOR, KEPT RESTED AND COMFORTABLE, WILL CONTINUE TO MONITOR.
--- NOTE | 2019-04-03 15:32 | NUR ---
AT BEDSIDE FOR EVAL.
--- NOTE | 2019-04-03 15:44 | NUR ---
IV LINE ESTABLISHED, BLOOD DRAWNED AND SENT TO LAB.
[2019-04-03 15:53] LABS: BASOPHILS % (AUTO) 0.9 % (0.0-2.0); EOSINOPHILS % (AUTO) 5.3 % (0.0-6.0); HEMATOCRIT 31 % (39-51); HEMOGLOBIN 10.3 g/dL (13.5-17.5); LYMPHOCYTES # (AUTO) 0.5 /CMM (0.8-4.8); LYMPHOCYTES % (AUTO) 10.8 % (20.0-44.0); MEAN CORPUSCULAR HGB CONC 34 g/dl (31.0-36.0); MEAN CORPUSCULAR VOLUME 107 fL (80-96); MONOCYTES # (AUTO) 0.7 /CMM (0.1-1.30); MONOCYTES % (AUTO) 15.6 % (2.0-12.0); NEUTROPHILS # (AUTO) 2.9 /CMM (1.8-8.9); NEUTROPHILS % (AUTO) 67.4 % (43.0-81.0); PLATELET COUNT (AUTO) 122 /CMM (150-450); RED BLOOD CELL COUNT(AUTO) 2.86 MIL/uL (4.5-6.0); WHITE BLOOD COUNT (AUTO) 4.3 K/uL (4.3-11.0)
[2019-04-03] MEDS ORDERED: RISP0.253 PO (15:56)
[2019-04-03] MEDS ORDERED: POLY17PO4 PO (15:56)
[2019-04-03] MEDS ORDERED: CLON0.5T12 PO (15:56)
[2019-04-03] MEDS ORDERED: MINO2.5T PO (15:56)
[2019-04-03] MEDS ORDERED: FAMO20TA8 PO (15:56)
[2019-04-03] MEDS ORDERED: ACET-868 PO (15:56)
[2019-04-03] MEDS ORDERED: SENN-168 PO (15:56)
[2019-04-03] MEDS ORDERED: CLON0.3T PO (15:56)
[2019-04-03] MEDS ORDERED: LORAZEPAM INJ 2 MG/ML VIAL ONE (15:56)
[2019-04-03] MEDS ORDERED: CLON0.1T PO (15:56)
[2019-04-03] MEDS ORDERED: HYDR-4077 PO (15:56)
[2019-04-03] MEDS ORDERED: CLON1PAT2 TD (15:56)
[2019-04-03] MEDS ORDERED: TRAM50TA2 PO (15:56)
[2019-04-03 15:59] LABS: CREATININE 6.8 mg/dL (0.6-1.3); POTASSIUM 5.4 mmol/L (3.5-5.1)
[2019-04-03] MEDS ORDERED: LORAZEPAM INJ 2 MG/ML VIAL IV ONE (16:00)
--- NOTE | 2019-04-03 16:00 | NUR ---
BLADE ALIGNER OPENING NOTES RECEIVED PT FROM ER A/O X2 WITH DIAGNOSIS OF BILATERAL ARM EDEMA ADMITTED UNDER KAVEH GUNTER RN CLINICAL TRIAL MANAGER . VITAL SIGNS TAKEN . PT ON TELE MONITOR. RAC #18.INTACT PT HAS RIGHT CHEST HEMODIALYSIS CATHETER. , RESPIRATION EVEN AND AND UNLABORED , ON RA NO SOB NOTED AT THIS TIME , CHACHO DYER CLINICAL TRIAL MANAGER NEURO AT BEDSIDE , HOSPITAL ORIENTATIONS DONE , BEACONING SIGNED, PLAN OF CARE DISCUSSED WITH PATIENT , WILL CONT TO MONITOR CLOSELY , WILL ENDORSE FOR CONT ADMISSION SENIOR PROFESSIONAL SERVICES CONSULTANTVIDEO SURVEILLANCE TECHNICIAN Addendum: 04/03/19 at 1949 by TODD SHORT RN DISREGARD THE RN NOTE
[2019-04-03 16:05] LABS: ALBUMIN 3.2 g/dL (3.4-5.0); BILIRUBIN,DIRECT 0.2 mg/dL (0.0-0.2); BILIRUBIN,TOTAL 0.8 mg/dL (0.2-1.0)
--- NOTE | 2019-04-03 16:30 | NUR ---
PT IS BACK FROM THE CT SCAN.
--- NOTE | 2019-04-03 16:49 | NUR ---
CALLED [facility] [place] [employer]. LEATHER GOODS II ASSEMBLER WAS PAGED.
--- NOTE | 2019-04-03 16:52 | NUR ---
CALLED DR CRYSTAL FOR A NEUROLOGY DR TO
--- NOTE | 2019-04-03 16:55 | NUR ---
CALLED [facility] FOR MS BED
--- NOTE | 2019-04-03 17:16 | NUR ---
REPORT GIVEN TO ZAY DORSEY FOR VIKRAM.
--- NOTE | 2019-04-03 17:25 | NUR ---
EMANUEL 120-1 BED GIVEN
--- NOTE | 2019-04-03 17:47 | NUR ---
REPORT GIVEN TO GOMEZ BROOKS FOR VIKRAM.
[2019-04-03] MEDS ORDERED: LEVETIRACETAM (500MG) 500 MG in IV NS 0.9% 100 ML IV ONE (18:00)
[2019-04-03] MEDS ORDERED: LORAZEPAM INJ 2 MG/ML VIAL IV PRN (18:00)
[2019-04-03] MEDS ORDERED: MAGNESIUM HYDROXIDE 30 ML UDC PO PRN (18:00)
[2019-04-03] MEDS ORDERED: Z GUARD REMEDY 2 OZ OINT TP PRN (18:00)
[2019-04-03] MEDS ORDERED: ENOXAPARIN SODIUM 40 MG/0.4 ML DISP.SYRIN SQ SCH (18:00)
[2019-04-03] MEDS ORDERED: MAG HYDROX/AL HYDROX/SIMETH 30 ML UDC PO PRN (18:00)
[2019-04-03] MEDS ORDERED: ONDANSETRON HCL/PF 4 MG/2 ML VIAL IVP PRN (18:00)
--- NOTE | 2019-04-03 18:00 | NUR ---
DIGITAL BUSINESS ANALYST OPENING NOTES RECEIVED PT FROM ER A/O X2 WITH DIAGNOSIS OF BILATERAL ARM EDEMA ADMITTED UNDER KAVEH GUNTER RN GROUNDS RESTORATION SPECIALIST . VITAL SIGNS TAKEN . PT ON TELE MONITOR. RAC #18.INTACT PT HAS RIGHT CHEST HEMODIALYSIS CATHETER. , RESPIRATION EVEN AND AND UNLABORED , ON RA NO SOB NOTED AT THIS TIME , CHACHO DYER GROUNDS RESTORATION SPECIALIST NEURO AT BEDSIDE , HOSPITAL ORIENTATIONS DONE , BEACONING SIGNED, PLAN OF CARE DISCUSSED WITH PATIENT , WILL CONT TO MONITOR CLOSELY , WILL ENDORSE FOR CONT ADMISSION CHAIN REPAIRERREFERRAL MANAGEMENT LIAISON.
[2019-04-03 18:16] LABS: BAND % (MANUAL) 1 % (0.0-5.0); EOSINOPHILS % (MANUAL) 3 % (0-4); LYMPHOCYTES % (MANUAL) 10 % (16-48); MONOCYTES % (MANUAL) 11 % (0-11.0); NEUTROPHILS % (MANUAL) 75 (42-76)
[2019-04-03 18:21] VITALS: BP 168/80
--- NOTE | 2019-04-03 19:30 | NUR ---
TD/RN NOTES NEWLY ADMITTED PATIENT RECEIVED IN BED AT THIS TIME, NO S/S OF ACUTE DISTRESS NOTED, RESPIRATION EVEN AND UNLABORED. NO SOB NOTED. PATIENT ALERT, LETHARGIC, VERY SLEEPY, OPEN EYES WITH TACTILE STIMULI, ABLE TO VERIFY HIS NAME,THEN FALL BACK TO SLEEP. NO S/S OF PAIN NOTED, PATIENT SATURATING 98% ON RA, PATIENT ON TELE MONITORING WITH SR. RAC GAUGE 18, SITE WITH NO S/S OF INFECTION, INFILTRATION. KEPT CLEAN AND DRY. SAFETY MAINTAINED, BED AT THE LOWEST LOCKED, POSITION. SEIZURE PRECAUTIONS IN PLACE, SIDE RAILS PADDED FOR SAFETY. CALL LIGHT WITHIN REACH. WILL CONTINUE THE ADMITTING PROCESS. CONTINUE TO MONITOR PATIENT PER PLAN OF CARE.
[2019-04-03 20:00] VITALS: BP 130/70
[2019-04-03] MEDS: HEPARIN SODIUM, PORCINE 5000 UNITS/1 ML VIAL SQ SCH (21:00)
[2019-04-03] MEDS: FAMOTIDINE/PF INJ 20 MG/2 ML VIAL IV SCH (21:35)
--- NOTE | 2019-04-03 21:35 | NUR ---
HEPARIN NOT GIVEN DUE TO LOW PLATELETS LEVELS 122
[2019-04-04] VITALS: BP 138/78
[2019-04-04 04:00] VITALS: BP 123/76
[2019-04-04] MEDS: LEVETIRACETAM (500MG) 500 MG in IV NS 0.9% 100 ML IV SCH ×2 (05:01→17:31)
--- NOTE | 2019-04-04 06:34 | NUR ---
TD/RN NOTES PATIENT REMAINED IN BED, MORE ALERT, AWAKE, ORIENTED X3, DENIES ANY PAIN OR DISCOMFORT AT THIS TIME, NO S/S OF ACUTE DISTRESS NOTED, RESPIRATION EVEN AND UNLABORED. PATIENT REFUSED MORNING LABS. RISKS AND BENEFITS EXPLAINED, PATIENT STILL REFUSED, SPEECH CLEAR. PATIENT SATURATING 98% ON RA, PATIENT ON TELE MONITORING WITH SR. RAC GAUGE 18, SITE WITH NO S/S OF INFECTION, INFILTRATION. NPO ORDERED. ALL DUE MEDS GIVEN ORDERED, TOLERATED WELL. KEPT CLEAN AND DRY. SAFETY MAINTAINED, BED AT THE LOWEST LOCKED, POSITION. SEIZURE PRECAUTIONS IN PLACE, SIDE RAILS PADDED FOR SAFETY. CALL LIGHT WITHIN REACH. WILL ENDORSE TO AM SHIFT NURSE FOR VIKRAM..
[2019-04-04 08:00] VITALS: BP 142/70
[2019-04-04] MEDS ORDERED: PANTOPRAZOLE 40 MG VIAL IV SCH (09:00)
[2019-04-04] MEDS: FAMOTIDINE/PF INJ 20 MG/2 ML VIAL IV SCH ×2 (10:18→20:42)
[2019-04-04] MEDS: HEPARIN SODIUM, PORCINE 5000 UNITS/1 ML VIAL SQ SCH ×2 (10:19→20:44)
[2019-04-04 12:53] LABS: HEMATOCRIT 27 % (39-51); HEMOGLOBIN 9.2 g/dL (13.5-17.5); LYMPHOCYTES # (AUTO) 0.6 /CMM (0.8-4.8); LYMPHOCYTES % (AUTO) 15.8 % (20.0-44.0); MEAN CORPUSCULAR HGB CONC 34 g/dl (31.0-36.0); MEAN CORPUSCULAR VOLUME 106 fL (80-96); MONOCYTES # (AUTO) 0.4 /CMM (0.1-1.30); MONOCYTES % (AUTO) 11.8 % (2.0-12.0); NEUTROPHILS # (AUTO) 2.3 /CMM (1.8-8.9); NEUTROPHILS % (AUTO) 62.4 % (43.0-81.0); PLATELET COUNT (AUTO) 115 /CMM (150-450); RED BLOOD CELL COUNT(AUTO) 2.53 MIL/uL (4.5-6.0); WHITE BLOOD COUNT (AUTO) 3.6 K/uL (4.3-11.0)
[2019-04-04 13:04] LABS: CALCIUM, SERUM 10.3 mg/dL (8.5-10.1); MAGNESIUM 1.6 mg/dL (1.8-2.4); PHOSPHORUS 5.6 mg/dL (2.5-4.9); POTASSIUM 5.2 mmol/L (3.5-5.1)
[2019-04-04 13:09] LABS: CREATININE 8.4 mg/dL (0.6-1.3)
[2019-04-04 13:16] LABS: THYROID STIMULATING HORMONE 1.872 uIU/mL (0.358-3.74)
[2019-04-04 16:00] VITALS: BP 117/60
--- NOTE | 2019-04-04 18:26 | NUR ---
RN NOTE: PATIENT REMAINS ALERT AWAKE ORIENTED X 1 WITH PERIODS OF FORGETFULNESS. ON ROOM AIR, NO BREATHING DISTRESS NOTED. DENIES CHEST PAIN & DISCOMFORT. NO SEIZURE ACTIVITY NOTED DURING SHIFT. ASPIRATION/SEIZURE PRECAUTIONS OBSERVED. NO FALL/INJURY NOTED. HD ONGOING AT THIS TIME. SAFETY MEASURES OBSERVED. ENCOURAGE PATIENT TO USE CALL LIGHT FOR ASSISTANCE. CONTINUE TO MONITOR.
[2019-04-04 20:00] VITALS: BP 118/60
--- NOTE | 2019-04-04 21:00 | NUR ---
no fluid removed from hemodialysis, will continue to monitor, will recheck bp, post dialysis 84//41.
[2019-04-04 22:31] LABS: APPEARANCE,URINE CLEAR (CLEAR); BILIRUBIN,URINE NEGATIVE (NEGATIVE); BLOOD, URINE TRACE-INTA Ery/uL (NEGATIVE); COLOR,URINE YELLOW (YELLOW); KETONES,URINE NEGATIVE (NEGATIVE); LEUKOCYTE ESTERASE ,URINE 2+ (NEGATIVE); NITRITE, URINE NEGATIVE (NEGATIVE); PH,URINE 8.5 (5.0-8.0); PROTEIN,URINE 2+ mg/dl (NEGATIVE); UGLUCOSE TRACE mg/dL (NEGATIVE); UROBILINOGEN,URINE 0.2 EU/dL (0.2)
[2019-04-04 22:48] LABS: BACTERIA,URINE Rare /HPF (None Seen); MUCUS,URINE Rare /LPF (None Seen); RBC,URINE 0-2 /HPF (0-2); SQUAMOUS EPITHELIAL CELL,UR Few /HPF (None Seen)
[2019-04-04] MEDS: ZOLPIDEM TARTRATE 5 MG TABLET PO PRN (23:00)
[2019-04-05 04:00] VITALS: BP 158/80
[2019-04-05] MEDS: LEVETIRACETAM (500MG) 500 MG in IV NS 0.9% 100 ML IV SCH ×2 (05:20→17:42)
--- NOTE | 2019-04-05 05:46 | NUR ---
pt sleeping well, had dialysis last night tolerated well, bp low but return to normal after all blood returned. denies any pain, continue on keppra, new iv line inserted. urine sent to lab, had x1 bm, vss,afebrile will continue to monitor, no significant changes overnight. will continue to monitor.
[2019-04-05 06:33] LABS: BASOPHILS % (AUTO) 0.9 % (0.0-2.0); EOSINOPHILS % (AUTO) 8.1 % (0.0-6.0); HEMATOCRIT 25 % (39-51); HEMOGLOBIN 8.5 g/dL (13.5-17.5); LYMPHOCYTES # (AUTO) 0.6 /CMM (0.8-4.8); LYMPHOCYTES % (AUTO) 18.6 % (20.0-44.0); MEAN CORPUSCULAR HGB CONC 34 g/dl (31.0-36.0); MEAN CORPUSCULAR VOLUME 106 fL (80-96); MONOCYTES # (AUTO) 0.5 /CMM (0.1-1.30); MONOCYTES % (AUTO) 13.8 % (2.0-12.0); NEUTROPHILS # (AUTO) 1.9 /CMM (1.8-8.9); NEUTROPHILS % (AUTO) 58.6 % (43.0-81.0); PLATELET COUNT (AUTO) 109 /CMM (150-450); RED BLOOD CELL COUNT(AUTO) 2.37 MIL/uL (4.5-6.0); WHITE BLOOD COUNT (AUTO) 3.3 K/uL (4.3-11.0)
--- NOTE | 2019-04-05 06:51 | NUR ---
lab called and reported , lab culture done last 04/03 resulted gram + cocci in clusters 1 bottle so far, pageapril GALARZA and made aware pt not on antibiotics, awaiting for call back.
[2019-04-05 06:52] LABS: CALCIUM, SERUM 9.7 mg/dL (8.5-10.1); CREATININE 6.3 mg/dL (0.6-1.3); MAGNESIUM 1.8 mg/dL (1.8-2.4); PHOSPHORUS 4.8 mg/dL (2.5-4.9); POTASSIUM 5.2 mmol/L (3.5-5.1)
--- NOTE | 2019-04-05 07:33 | NUR ---
MS RN OPENING NOTE RECEIVED REPORT FROM [facility] SHIFT NURSE PT AWAKE IN BED, ALERT AND ORIENTED X 2, ON ROOM AIR, SATURATING WELL, RESPIRATIONS EASY AND UNLABORED, NO SIGNS OF RESPIRATORY DISTRESS NOTED. IV SITE ON RIGHT HAND G22 PATENT, WITH SALINE LOCK. BED IS LOCKED, IN LOW POSITION, CALL LIGHT WITHIN REACH. INTRODUCED SELF TO PT, DISCUSSED PLAN OF CARE.
[2019-04-05 07:48] LABS: LYMPHOCYTES % (MANUAL) 22 % (16-48); NEUTROPHILS % (MANUAL) 62 (42-76)
[2019-04-05 07:49] LABS: EOSINOPHILS % (MANUAL) 5 % (0-4); MONOCYTES % (MANUAL) 11 % (0-11.0)
--- NOTE | 2019-04-05 08:00 | NUR ---
PT REFUSED HIS VITALS TO BE TAKEN BY WASHER ENGINEER AND NURSE
[2019-04-05] MEDS: HEPARIN SODIUM, PORCINE 5000 UNITS/1 ML VIAL SQ SCH ×3 (09:00→21:07)
[2019-04-05] MEDS: FAMOTIDINE/PF INJ 20 MG/2 ML VIAL IV SCH ×3 (09:00→21:04)
--- NOTE | 2019-04-05 09:00 | NUR ---
PT REFUSED PEPCID AND HEPARIN.
[2019-04-05] MEDS: ATENOLOL 25 MG TABLET PO SCH ×2 (10:30→14:23)
--- NOTE | 2019-04-05 10:30 | NUR ---
PT REFUSED HIS VITALS TAKEN BY NURSE AND REFUSED ATENOLOL
--- NOTE | 2019-04-05 10:45 | NUR ---
NOTIFIED HOSPITALIST KAVEH CARPENTER ABOUT PT REFUSING MEDICATIONS AND VITAL SIGNS
--- NOTE | 2019-04-05 13:10 | NUR ---
CORPORATE SAFETY MANAGER BY BEDSIDE, PT IS REFUSING BLOOD CULTURES TO BE DRAWN.
[2019-04-05] MEDS ORDERED: CEFTRIAXONE 1 G in IV D5W 50 ML IV SCH (14:00)
[2019-04-05 16:00] VITALS: BP 133/71
[2019-04-05] MEDS ORDERED: LORAZEPAM INJ 2 MG/ML VIAL IV PRN (18:00)
--- NOTE | 2019-04-05 18:47 | NUR ---
MS RN CLOSING NOTE PT AWAKE IN BED, ALERT AND ORIENTED X 2, ON ROOM AIR, SATURATING WELL, RESPIRATIONS EASY AND UNLABORED, NO SIGNS OF RESPIRATORY DISTRESS NOTED. IV SITE ON RIGHT HAND G22 PATENT, INFUSING TKO 5ML/HR, NO SIGNS OF INFILTRATION NOTED. BED IS LOCKED, IN LOW POSITION, CALL LIGHT WITHIN REACH. PROVIDED SAFETY AND COMFORT TO PT THROUGHOUT SHIFT. WILL ENDORSE TO NOC SHIFT NURSE FOR VIKRAM.
[2019-04-05] MEDS ORDERED: FEE PK DOSING 1 MIN EA MC ONE (18:50)
--- NOTE | 2019-04-05 19:40 | NUR ---
MS RN OPENING NOTE RECEIVED REPORT FROM AM RN, PATIENT AWAKE IN BED, ALERT AND ORIENTED X 2, ON ROOM AIR, SATURATING WELL, RESPIRATIONS EASY AND UNLABORED, NO SIGNS OF RESPIRATORY DISTRESS NOTED. IV SITE ON RIGHT HAND G22 PATENT, WITH SALINE LOCK. BED IS LOCKED, IN LOW POSITION, CALL LIGHT WITHIN REACH. INTRODUCED SELF TO PT, WILL CONTINUE THE CARE .
[2019-04-05 20:00] VITALS: BP 152/92
[2019-04-05] MEDS ORDERED: VANCOMYCIN 1 GM in IV D5W 250 ML IV ONE (20:00)
[2019-04-05] MEDS: CEFEPIME 1 GM in IV D5W 50 ML IV SCH (20:23)
[2019-04-05] MEDS: ZOLPIDEM TARTRATE 5 MG TABLET PO PRN (20:46)
[2019-04-05] MEDS: ACETAMINOPHEN 325 MG TABLET PO PRN (20:46)
[2019-04-06] VITALS: BP 152/92
[2019-04-06] MEDS: ACETAMINOPHEN 325 MG TABLET PO PRN ×2 (03:29→09:48)
[2019-04-06 04:00] VITALS: BP 167/82
[2019-04-06 04:45] VITALS: BP 167/82
[2019-04-06] MEDS: LEVETIRACETAM (500MG) 500 MG in IV NS 0.9% 100 ML IV SCH (05:39)
--- NOTE | 2019-04-06 07:30 | NUR ---
RN OPENING NOTES: RESIDENT IN BED, AWAKE, AND ABLE TO MAKE NEEDS KNOWN. NO C/O PAIN OR SOB. (R) HAND 20G AND (R) UPPER CHEST WALL HD CATH. DIALYSIS SCHEDULED TODAY. BED LOCKED AND IN LOW POSITION. ON SEIZURE PRECAUTION. CALL LIGHT WITHIN REACH. WILL CONT. TO MONITOR.
--- NOTE | 2019-04-06 07:32 | NUR ---
MS RN CLOSING NOTE PT AWAKE IN BED, ALERT AND ORIENTED X 2, ON ROOM AIR, SATURATING WELL, RESPIRATIONS EASY AND UNLABORED, NO SIGNS OF RESPIRATORY DISTRESS NOTED. IV SITE ON RIGHT HAND G22 PATENT, INFUSING TKO 5ML/HR, NO SIGNS OF INFILTRATION NOTED. BED IS LOCKED/LOW POSITION, CALL LIGHT WITHIN REACH. PROVIDED SAFETY AND COMFORT TO PT THROUGHOUT SHIFT. WILL ENDORSE TO AM SHIFT NURSE FOR VIKRAM.
[2019-04-06 07:35] LABS: BASOPHILS % (AUTO) 0.8 % (0.0-2.0); EOSINOPHILS % (AUTO) 7.5 % (0.0-6.0); HEMATOCRIT 25 % (39-51); HEMOGLOBIN 8.7 g/dL (13.5-17.5); LYMPHOCYTES # (AUTO) 0.7 /CMM (0.8-4.8); MEAN CORPUSCULAR HGB CONC 34 g/dl (31.0-36.0); MEAN CORPUSCULAR VOLUME 105 fL (80-96); MONOCYTES # (AUTO) 0.5 /CMM (0.1-1.30); MONOCYTES % (AUTO) 13.6 % (2.0-12.0); NEUTROPHILS # (AUTO) 2.2 /CMM (1.8-8.9); NEUTROPHILS % (AUTO) 60.1 % (43.0-81.0); PLATELET COUNT (AUTO) 104 /CMM (150-450); RED BLOOD CELL COUNT(AUTO) 2.41 MIL/uL (4.5-6.0); WHITE BLOOD COUNT (AUTO) 3.7 K/uL (4.3-11.0)
[2019-04-06 07:38] LABS: CALCIUM, SERUM 9.7 mg/dL (8.5-10.1); MAGNESIUM 1.8 mg/dL (1.8-2.4); POTASSIUM 5.5 mmol/L (3.5-5.1)
[2019-04-06 08:00] VITALS: BP 159/77
[2019-04-06] MEDS: ATENOLOL 25 MG TABLET PO SCH (09:00)
[2019-04-06] MEDS: FAMOTIDINE/PF INJ 20 MG/2 ML VIAL IV SCH (09:00)
[2019-04-06] MEDS: HEPARIN SODIUM, PORCINE 5000 UNITS/1 ML VIAL SQ SCH ×2 (09:00→21:00)
[2019-04-06] MEDS: LACTOBACILLUS RHAMNOSUS GG 1 EACH CAP.SPRINK PO SCH ×2 (09:00→17:00)
--- NOTE | 2019-04-06 10:00 | NUR ---
RN NOTE: PATIENT'S BREAKFAST FOOD TRAY WAS FOUND ON THE FLOOR. WHEN ASKED, HE STATED HE ACCIDENTALLY DROPPED THE TRAY ONTO THE FLOOR. OFFERED A NEW FOOD TRAY BUT PATIENT DECLINED. DURING MED PASS, PATIENT REFUSED ALL MORNING MEDS. RISKS AND BENEFITS EXPLAINED BUT STILL REFUSED. PATIENT ASKED FOR TYLENOL DUE TO C/O HEADACHE. WILL CONT. TO MONITOR FOR EFFECTIVENESS.
--- NOTE | 2019-04-06 10:13 | NUR ---
RN NOTE PATIENT YELLING AND TELLING PEOPLE TO GET OUT OF HIS ROOM. KEEPS USING THE CALL LIGHT. WHEN ASKED WHY, PATIENT SAID: "I WANT RESULTS". TOLD PATIENT THAT HE IS GOING TO HAVE DIALYSIS TODAY BECAUSE HIS LABS SHOW ELEVATED BUN. PATIENT STARTED SCREAMING AND THREW WATER AT ME. LEFT THE ROOM AND PATIENT THREW EVERYTHING ON THE FLOOR. CALLED SECURITY AND MADE CN AWARE
--- NOTE | 2019-04-06 13:00 | NUR ---
RN NOTE: PATIENT WAS SEEN BY RAMÓN LINN WITH NEW ORDERS FOR PSYCH CONSULT AND NEW SET OF BLOOD CULTURE FROM DIALYSIS.
--- NOTE | 2019-04-06 14:00 | NUR ---
RN NOTE: RAMÓN LINN MADE AWARE TO APPROVE MED RECON.
--- NOTE | 2019-04-06 15:00 | NUR ---
RN NOTE PATIENT HAVING DIALYSIS AT THIS TIME. PER KAVEH, ORDER NEW SET OF BLOOD CX PER ID REQUEST. ORDER CARRIED OUT. CALLED LAB TO COME RAINA SINCE DIALYSIS NURSE AT BEDSIDE.
[2019-04-06 16:00] VITALS: BP 164/80
--- NOTE | 2019-04-06 16:30 | NUR ---
RN NOTE PATIENT'S SBP >160. PATIENT REFUSING ANY BP MEDS, OR ANY PROCEDURE AT THIS TIME. 1800: PER CASH APPLICATION CLERK RAMILA, COLLECT STERILE URINE AND DO BLADDER SCAN. PATIENT REFUSES. CASH APPLICATION CLERK AWARE
[2019-04-06] MEDS ORDERED: TRAMADOL HCL 50 MG TABLET PO PRN (17:30)
[2019-04-06] MEDS ORDERED: CLONIDINE HCL 0.1 MG TABLET PO PRN (17:30)
[2019-04-06] MEDS ORDERED: POLYETHYLENE GLYCOL 3350 17 GM POWD.PACK PO PRN (17:30)
[2019-04-06] MEDS: SEVELAMER CARBONATE 800 MG TABLET PO SCH (18:00)
[2019-04-06] MEDS ORDERED: VANCOMYCIN 500 MG in IV D5W 100 ML IV PRN (19:00)
--- NOTE | 2019-04-06 19:20 | NUR ---
RN CLOSING NOTE: PATIENT IN BED, ALERT, AND VERBALLY RESPONSIVE. PATIENT REFUSED ALL MEDS DURING SHIFT. RAMÓN LINN AWARE. BEDSIDE REPORT GIVEN TO PM SHIFT NURSE FOR CONTINUITY OF CARE. HD DONE TODAY WITH 2 L OUT. PSYCH EVAL ORDERED.
--- NOTE | 2019-04-06 19:45 | NUR ---
MS RN OPENING NOTE RECEIVED PT AWAKE IN BED, ALERT AND ORIENTED X 2, ON ROOM AIR, SATURATING WELL, RESPIRATIONS EASY AND UNLABORED, NO SIGNS OF RESPIRATORY DISTRESS NOTED. IV SITE ON RIGHT HAND G22 PATENT, INFUSING TKO 5ML/HR, NO SIGNS OF INFILTRATION NOTED. PATIENT HAS BEEN REFUSING ALL HIS DAY MEDICATION. BED IS LOCKED/LOW POSITION, CALL LIGHT WITHIN REACH. PATIENT IS ON RESTRAINS. WILL CONTINUE TO MONITOR.
[2019-04-06] MEDS: CEFEPIME 1 GM in IV D5W 50 ML IV SCH (20:13)
[2019-04-06] MEDS: LEVETIRACETAM SOL (5 ML) 100 MG/ML UDC PO SCH (21:00)
--- NOTE | 2019-04-06 21:10 | NUR ---
MS RN NOTES, PATIENT REFUSED VITAL SIGNS AT 1999. PATIENT ALSO REFUSED MEDICATIONS AND AFTER EDUCATION HIM ABOUT THE RISK HE STILL REFUSED THE DUE MEDICATIONS, KEPPRA AND HEPARIN. HE STATES HE DOESN'T NEED THEM
[2019-04-06] MEDS: risperiDONE 1 MG TABLET PO SCH (22:00)
[2019-04-06] MEDS: SENNOSIDES 8.6 MG TABLET PO SCH (22:00)
[2019-04-06] MEDS: ATORVASTATIN 40 MG TABLET PO SCH (22:00)
[2019-04-06] MEDS: clonazePAM 0.5 MG TABLET PO SCH (23:21)
[2019-04-06] MEDS: ZOLPIDEM TARTRATE 5 MG TABLET PO PRN (23:25)
--- NOTE | 2019-04-06 23:49 | NUR ---
MS RN NOTES, PATIENT REFUSED MEDICATIONS AND AFTER EXPLAINING THE RISKS ONLY AGREED TO TAKE PRN AMBIEN AND HIS KLONOPIN. AFTER SCHEDULED HOUR.
[2019-04-07 04:00] VITALS: BP 174/91
[2019-04-07] MEDS ORDERED: VANCOMYCIN 500 MG in IV D5W 100 ML IV PRN (06:00)
[2019-04-07] MEDS ORDERED: FAMOTIDINE (20 MG) 20 MG TABLET PO SCH (07:30)
--- NOTE | 2019-04-07 07:51 | NUR ---
MS RN OPENING NOTE PATIENT IN BED AWAKE/ ALERT AND ORIENTED X 2, ON ROOM AIR, SATURATING WELL, RESPIRATIONS EASY AND UNLABORED, NO SIGNS OF RESPIRATORY DISTRESS NOTED. IV SITE ON RIGHT HAND G22 PATENT, INFUSING TKO 5ML/HR, NO SIGNS OF INFILTRATION NOTED. PATIENT HAS BEEN REFUSING SOME OF HIS NIGHT MEDICATION AND DID NOT WANT VITAL SINGS TO BE TAKEN. HE REFUSED BLOOD WORK IN THE AM. BED IS LOCKED/LOW POSITION, CALL LIGHT WITHIN REACH. PATIENT IS ON RESTRAINS. WILL ENDORSE THE PATIENT TO AM RN. .
[2019-04-07 08:00] VITALS: BP 167/84
[2019-04-07] MEDS ORDERED: CARVEDILOL 12.5 MG TABLET PO SCH (09:00)
[2019-04-07] MEDS: POLYETHYLENE GLYCOL 3350 17 GM POWD.PACK PO SCH (09:36)
[2019-04-07] MEDS: MINOXIDIL (2.5MG) 2.5 MG TABLET PO SCH ×2 (09:37→16:24)
[2019-04-07] MEDS: SEVELAMER CARBONATE 800 MG TABLET PO SCH ×3 (09:37→16:27)
[2019-04-07] MEDS: AMLODIPINE BESYLATE 10 MG TABLET PO SCH (09:38)
[2019-04-07] MEDS: LACTOBACILLUS RHAMNOSUS GG 1 EACH CAP.SPRINK PO SCH ×2 (09:38→16:25)
[2019-04-07] MEDS: LEVETIRACETAM SOL (5 ML) 100 MG/ML UDC PO SCH ×2 (09:38→21:56)
[2019-04-07] MEDS: ASPIRIN 81 MG TAB.CHEW PO SCH (09:39)
[2019-04-07] MEDS: risperiDONE 1 MG TABLET PO SCH (09:39)
[2019-04-07] MEDS: hydrALAZINE HCL 50 MG TABLET PO SCH ×3 (09:39→16:25)
[2019-04-07] MEDS: CARVEDILOL 12.5 MG TABLET PO SCH ×2 (09:40→16:25)
[2019-04-07] MEDS: HEPARIN SODIUM, PORCINE 5000 UNITS/1 ML VIAL SQ SCH ×2 (09:41→21:57)
--- NOTE | 2019-04-07 10:20 | NUR ---
PATIENT START TO GET ANXIUOS ,PRN ATIVAN 1MG IVP GIVEN BY RN NORIS,WASTED 1MG , ORDERED.
--- NOTE | 2019-04-07 10:28 | NUR ---
alert, disoriented, but not combative, restraints off since seen this am. no episode of sx noted so far.
[2019-04-07] MEDS ORDERED: VANCOMYCIN 1 GM in IV D5W 250 ML IV ONE (15:00)
[2019-04-07 16:00] VITALS: BP 151/75
[2019-04-07 16:09] LABS: BASOPHILS % (AUTO) 0.9 % (0.0-2.0); EOSINOPHILS % (AUTO) 6.7 % (0.0-6.0); HEMATOCRIT 24 % (39-51); HEMOGLOBIN 8.1 g/dL (13.5-17.5); LYMPHOCYTES # (AUTO) 0.5 /CMM (0.8-4.8); LYMPHOCYTES % (AUTO) 17.4 % (20.0-44.0); MEAN CORPUSCULAR HGB CONC 34 g/dl (31.0-36.0); MEAN CORPUSCULAR VOLUME 106 fL (80-96); MONOCYTES # (AUTO) 0.5 /CMM (0.1-1.30); NEUTROPHILS # (AUTO) 1.8 /CMM (1.8-8.9); PLATELET COUNT (AUTO) 89 /CMM (150-450); RED BLOOD CELL COUNT(AUTO) 2.26 MIL/uL (4.5-6.0); WHITE BLOOD COUNT (AUTO) 3.1 K/uL (4.3-11.0)
[2019-04-07 16:12] VITALS: BP 151/75
[2019-04-07 16:19] LABS: CALCIUM, SERUM 9.3 mg/dL (8.5-10.1); MAGNESIUM 1.8 mg/dL (1.8-2.4); PHOSPHORUS 6.3 mg/dL (2.5-4.9); POTASSIUM 5.2 mmol/L (3.5-5.1)
[2019-04-07 16:23] LABS: CREATININE 7.8 mg/dL (0.6-1.3)
[2019-04-07 16:33] LABS: EOSINOPHILS % (MANUAL) 4 % (0-4); LYMPHOCYTES % (MANUAL) 25 % (16-48); MONOCYTES % (MANUAL) 13 % (0-11.0); NEUTROPHILS % (MANUAL) 58 (42-76)
--- NOTE | 2019-04-07 17:21 | NUR ---
MORE ALERT, AND QUIET, RESTRAINTS OFF DURING THE SHIFT, NO VISITOR NOTED. PER PHARMACY, NEEDS VANCO IVPB TODAY, GIVEN. COMPLIANT WITH PO PILLS., NO C/O PAIN
--- NOTE | 2019-04-07 19:20 | NUR ---
MS RN OPENING NOTE PATIENT IN BED SLEEPING. ALERT AND ORIENTED X 2, ON ROOM AIR, SATURATING WELL, RESPIRATIONS EASY AND UNLABORED, NO SIGNS OF RESPIRATORY DISTRESS NOTED. IV SITE ON RIGHT HAND G22 PATENT, INFUSING TKO 5ML/HR, NO SIGNS OF INFILTRATION NOTED. PATIENT HAS BEEN REFUSING SOME MEDICATION AND VITAL SINGS FOR 2 DAYS. BED IS LOCKED/LOW POSITION, CALL LIGHT WITHIN REACH. PATIENT IS ON RESTRAINS. WILL WILL CONTINUE TO MONITOR.
[2019-04-07] MEDS: CEFEPIME 1 GM in IV D5W 50 ML IV SCH (20:35)
[2019-04-07] MEDS: FAMOTIDINE (20 MG) 20 MG TABLET PO SCH (21:56)
[2019-04-08] MEDS: clonazePAM 0.5 MG TABLET PO SCH (00:14)
[2019-04-08] MEDS: SENNOSIDES 8.6 MG TABLET PO SCH (00:14)
[2019-04-08] MEDS: ATORVASTATIN 40 MG TABLET PO SCH (00:14)
[2019-04-08] MEDS: risperiDONE 1 MG TABLET PO SCH ×2 (00:14→09:22)
[2019-04-08] MEDS: ZOLPIDEM TARTRATE 5 MG TABLET PO PRN (00:25)
--- NOTE | 2019-04-08 01:25 | NUR ---
RN NOTES, RECEIVED PATIENT FROM GOMEZ BENITEZ FOR CONTINUATION OF CARE, PATIENT SLEEPING AT THIS TIME, BREATHING EVEN AND UNLABORED, NO S/S OF SOB/ACUTE DISTRESS, WILL CONTINUE TO MONITOR CLOSELY.
--- NOTE | 2019-04-08 01:27 | NUR ---
MS RN NOTES REPORT GIVEN TO LEONA DYER FOR VIKRAM.
[2019-04-08 04:00] VITALS: BP 172/91
--- NOTE | 2019-04-08 04:27 | NUR ---
RN NOTES, PATIENT NOTED WITH HIGH BLOOD PRESSURE, AT THIS TIME BLOOD PRESSURE 172/91, HR 66, CLONIDINE PRN ADMINISTERED AT THIS TIE, WILL CONTINUE TO MONITOR CLOSELY.
--- NOTE | 2019-04-08 05:20 | NUR ---
RN NOTES, AFTER RECHECK OF BLOOD PRESSURE, BP AT THIS TIME, 148/88, WILL CONTINUE TO MONITOR CLOSELY.
--- NOTE | 2019-04-08 06:57 | NUR ---
RN NOTES, PATIENT SLEEPING AT THIS TIME, BUT AROUSES EASILY TO TACTILE STIMULI, BREATHING EVEN AND UNLABORED, NO S/S OF SOB/ACUTE DISTRESS, WILL ENDORSE CONTINUITY OF CARE TO ONCOMING NURSE.
[2019-04-08 07:07] LABS: BASOPHILS % (AUTO) 1.2 % (0.0-2.0); EOSINOPHILS % (AUTO) 8.8 % (0.0-6.0); HEMATOCRIT 23 % (39-51); HEMOGLOBIN 7.8 g/dL (13.5-17.5); LYMPHOCYTES # (AUTO) 0.7 /CMM (0.8-4.8); LYMPHOCYTES % (AUTO) 22.8 % (20.0-44.0); MEAN CORPUSCULAR HGB CONC 35 g/dl (31.0-36.0); MEAN CORPUSCULAR VOLUME 105 fL (80-96); MONOCYTES # (AUTO) 0.5 /CMM (0.1-1.30); NEUTROPHILS # (AUTO) 1.7 /CMM (1.8-8.9); NEUTROPHILS % (AUTO) 52.2 % (43.0-81.0); PLATELET COUNT (AUTO) 86 /CMM (150-450); RED BLOOD CELL COUNT(AUTO) 2.16 MIL/uL (4.5-6.0); WHITE BLOOD COUNT (AUTO) 3.3 K/uL (4.3-11.0)
[2019-04-08 07:54] LABS: CALCIUM, SERUM 9.5 mg/dL (8.5-10.1); MAGNESIUM 1.8 mg/dL (1.8-2.4); PHOSPHORUS 6.5 mg/dL (2.5-4.9); POTASSIUM 5.2 mmol/L (3.5-5.1)
--- NOTE | 2019-04-08 07:55 | NUR ---
RN OPENING NOTES RECEIVED PATIENT SLEEPING IN BED COMFORTABLY, EASILY AROUSED. HE IS AOX3, VERBAL, AND ON BED REST. HE IS ON RA, TOLERATING WELL, SHOWS NO S/SX OF RESP DISTRESS OR SOB AT THIS TIME. HE HAS A R HAND 22 G TKO AND A R UPPER CHEST HD CATH. SKIN IS INTACT, SLIGHT EDEMA ON BUE. HE IS ON A REGULAR DIET, TOLERATING WELL. PT IS TO BE DIALYZED TODAY, CHEST XRAY WAS PERFORMED. WAITING FOR VANCO TROUGH LEVEL. SAFETY MEASURES HAVE BEEN IMPLEMENTED, CALL LIGHT IS WITHIN REACH, BED IS IN LOWEST AND LOCKED POSITION, SIDE RAILS UP X2, WILL CONTINUE TO MONITOR FOR ANY CHANGES.
[2019-04-08 08:00] VITALS: BP 151/74
[2019-04-08 08:03] LABS: CREATININE 8.5 mg/dL (0.6-1.3)
[2019-04-08] MEDS: SEVELAMER CARBONATE 800 MG TABLET PO SCH ×2 (08:28→13:00)
[2019-04-08] MEDS ORDERED: IV NS 0.9% 250 ML IV ONE (08:30)
[2019-04-08] MEDS ORDERED: DOXY100C2 PO (08:52)
[2019-04-08] MEDS ORDERED: CEFU500T66 PO (08:52)
[2019-04-08] MEDS: AMLODIPINE BESYLATE 10 MG TABLET PO SCH (09:00)
[2019-04-08] MEDS: HEPARIN SODIUM, PORCINE 5000 UNITS/1 ML VIAL SQ SCH (09:00)
[2019-04-08] MEDS: hydrALAZINE HCL 50 MG TABLET PO SCH ×2 (09:00→13:00)
[2019-04-08] MEDS: POLYETHYLENE GLYCOL 3350 17 GM POWD.PACK PO SCH (09:00)
[2019-04-08] MEDS: MINOXIDIL (2.5MG) 2.5 MG TABLET PO SCH (09:00)
[2019-04-08] MEDS: CARVEDILOL 12.5 MG TABLET PO SCH (09:00)
[2019-04-08] MEDS: FAMOTIDINE (20 MG) 20 MG TABLET PO SCH (09:22)
[2019-04-08] MEDS: LEVETIRACETAM SOL (5 ML) 100 MG/ML UDC PO SCH (09:22)
[2019-04-08] MEDS: LACTOBACILLUS RHAMNOSUS GG 1 EACH CAP.SPRINK PO SCH (09:22)
[2019-04-08] MEDS: ASPIRIN 81 MG TAB.CHEW PO SCH (09:22)
--- NOTE | 2019-04-08 09:44 | NUR ---
MORNING BP MEDS HAVE BEEN HELD BECAUSE PT IS TO BE DIALYZED. HEPARIN HAS BEEN HELD BECAUSE PLATELETS ARE TRENDING DOWN, PT REFUSED MIRALAX
--- NOTE | 2019-04-08 13:34 | NUR ---
1300 MEDS HELD BECAUSE PATIENT IS BEING DIALYZED
[2019-04-08 16:00] VITALS: BP 146/79
--- NOTE | 2019-04-08 16:20 | NUR ---
PT HAS BEEN DISCHARGED IN STABLE CONDITION. HE LEFT VIA GURNEY WITH EMT. IV SITE WAS REMOVED. BELONGINGS WERE CHECKED, HOWEVER, PT REFUSED TO SIGN THE BELONGINGS LIST. EXIT CARE WAS PROVIDED. REPORT WAS GIVEN TO MAUREEN AT [facility].
[2019-04-10] MEDS ORDERED: CLONIDINE HCL 0.2MG/24H PTWK 1 EA PATCH TD SCH (09:00)
== END 2019-04-08 16:20 | DRG 871 ==
LOC: ER 15:43 → TELE-TD 17:33 → MEDSG1 04-04 10:17
PROVIDERS: ADMIT Registered Nurse; ATTEND Nurse Practitioner Acute Care
PROC: 5A1D70Z Performance of Urinary Filtration, Intermittent, Less than 6 Hours Per Day (ICD-10-PCS; principal; 2019-04-04)
DX: A41.9 Sepsis, unspecified organism (principal); N18.6 End stage renal disease; I50.33 Acute on chronic diastolic (congestive) heart failure; E44.0 Moderate protein-calorie malnutrition; I13.2 Hypertensive heart and chronic kidney disease with heart failure and with stage 5 chronic kidney disease, or end stage renal disease; G92 Toxic encephalopathy; N39.0 Urinary tract infection, site not specified; E87.5 Hyperkalemia; K21.9 Gastro-esophageal reflux disease without esophagitis; E83.52 Hypercalcemia; F20.9 Schizophrenia, unspecified; J45.909 Unspecified asthma, uncomplicated; Z99.2 Dependence on renal dialysis; F41.9 Anxiety disorder, unspecified; F32.9 Major depressive disorder, single episode, unspecified; D63.1 Anemia in chronic kidney disease; E88.09 Other disorders of plasma-protein metabolism, not elsewhere classified; R53.1 Weakness; Z68.23 Body mass index [BMI] 23.0-23.9, adult; R40.2142 Coma scale, eyes open, spontaneous, at arrival to emergency department; R40.2252 Coma scale, best verbal response, oriented, at arrival to emergency department; R40.2362 Coma scale, best motor response, obeys commands, at arrival to emergency department; R56.9 Unspecified convulsions; I25.2 Old myocardial infarction
CPT/HCPCS: 36415; 70450-TC; 71045-TC; 80048-TC; 80061-TC; 80076-TC; 80202-TC; 81000-TC; 82140-TC; 83605-TC; 83735-TC; 84100-TC; 84443-TC; 84484-TC; 85025-TC; 85730-TC; 86706; 87040-TC; 87081-TC; 87086-TC; 87340; 90935-TC; 93307-TC; 93970-TC; 95819-TC; C9113; G0378; J0692; J0696; J1644; J1953; J2060; J3370; J3490; J7030; J7050; J7060

== ENCOUNTER 2019-08-21 17:38 | Inpatient (IN) | payer MEDICARE, OTHER ==
[~2019-08-21] VITALS: Ht 170.2 cm; Wt 69.9 kg
[~2019-08-21 17:38] MED LIST changes: -ACET-868 PO; -ALBU8.5H8 IH; -ATOR40TA GT; -BENZ-13 PO; -BENZ1TAB7 PO; +CEFU500T66 PO; +CLON0.1T PO; +CLON0.5T4 PO; +CLON1PAT2 TD; -CLON1TAB12 PO; -DIVA250T4 PO; -DOCU-141 PO; +DOXY100C2 PO; -ERGO500040 PO; +FAMO20TA8 PO; -FERR325T23 PO; -FOLI0.8T23 PO; -GUAI5SYR PO; +HYDR-4077 PO; -IPRA4AER IH; +MINO2.5T PO; -Nepro PO; -OLAN10VI IM; -OLAN2.5T3 PO; -OXYB5TAB11 PO; -PANT40TA2 PO; +POLY17PO4 PO; -RISP1TAB7 PO; +SENN-168 PO; +TRAM50TA2 PO
--- NOTE | 2019-08-21 18:15 | NUR ---
NOLAN JONES 69 YEAR OLD MALE FROM [facility] AND REFUSING DIALYSIS TODAY. ALERT AND ORIENTED X3, BREATHING EVEN AND UNLABORED WITH NO DISTRESS NOTED. RIGHT CHEST ACCESS SITE FOR DIALYSIS. WAITING TO BE SEEN BY
[2019-08-21] MEDS ORDERED: MULT-439 PO (18:39)
[2019-08-21] MEDS ORDERED: FOLI0.8T2 PO (18:39)
[2019-08-21] MEDS ORDERED: HYDR100T27 PO (18:39)
[2019-08-21] MEDS ORDERED: LABE300T2 PO (18:39)
[2019-08-21] MEDS ORDERED: BENZ-13 PO (18:39)
[2019-08-21] MEDS ORDERED: DIVA500T2 PO (18:39)
[2019-08-21] MEDS ORDERED: LOSA100T3 PO (18:39)
[2019-08-21] MEDS ORDERED: IPRA12.9 IH (18:39)
[2019-08-21] MEDS ORDERED: AMIN887L PO (18:39)
[2019-08-21] MEDS ORDERED: PANT40TA2 PO (18:39)
[2019-08-21] MEDS ORDERED: OLAN2.5T3 PO (18:39)
[2019-08-21 19:00] LABS: BASOPHILS # (AUTO) 0.1 /CMM (0.0-0.2); HEMOGLOBIN 8.2 g/dL (13.5-17.5); LYMPHOCYTES # (AUTO) 0.6 /CMM (0.8-4.8); WHITE BLOOD COUNT (AUTO) 5.9 K/uL (4.3-11.0)
[2019-08-21 19:03] LABS: BASOPHILS % (AUTO) 1.3 % (0.0-2.0); EOSINOPHILS % (AUTO) 7.5 % (0.0-6.0); HEMATOCRIT 25 % (39-51); LYMPHOCYTES % (AUTO) 10.3 % (20.0-44.0); MEAN CORPUSCULAR HGB CONC 33 g/dl (31.0-36.0); MEAN CORPUSCULAR VOLUME 116 fL (80-96); MONOCYTES # (AUTO) 0.8 /CMM (0.1-1.30); MONOCYTES % (AUTO) 12.7 % (2.0-12.0); NEUTROPHILS % (AUTO) 68.2 % (43.0-81.0); PLATELET COUNT (AUTO) 132 /CMM (150-450); RED BLOOD CELL COUNT(AUTO) 2.12 MIL/uL (4.5-6.0)
[2019-08-21 19:11] LABS: CALCIUM, SERUM 9.7 mg/dL (8.5-10.1); CARBON DIOXIDE 31 mmol/L (21-32); CHLORIDE 104 mmol/L (98-107); CREATININE 6.3 mg/dL (0.6-1.3); GLUCOSE 98 mg/dL (74-106); POTASSIUM 5.4 mmol/L (3.5-5.1); SODIUM SERUM 141 mmol/L (136-145); UREA NITROGEN, BLOOD 64 mg/dL (7-18)
[2019-08-21 19:15] LABS: ACETAMINOPHEN 11 ug/ml (10-30); ALCOHOL, BLOOD < 3 mg/dL (0-0)
[2019-08-21 19:16] LABS: SALICYLATE 2.6 mg/dL (2.8-20.0)
--- NOTE | 2019-08-21 19:29 | NUR ---
PT STATED NO ABLE TO URINATE
--- NOTE | 2019-08-21 19:31 | NUR ---
PT REFUSED EKG MADE AWARE
--- NOTE | 2019-08-21 20:33 | NUR ---
CALLED FOR TELE BED
[2019-08-21 20:53] LABS: EOSINOPHILS % (MANUAL) 10 % (0-4); LYMPHOCYTES % (MANUAL) 4 % (16-48); MONOCYTES % (MANUAL) 9 % (0-11.0); NEUTROPHILS % (MANUAL) 77 (42-76)
[2019-08-21] MEDS ORDERED: MAGNESIUM HYDROXIDE 30 ML UDC PO PRN (21:00)
[2019-08-21] MEDS ORDERED: ONDANSETRON HCL/PF 4 MG/2 ML VIAL IVP PRN (21:00)
[2019-08-21] MEDS ORDERED: MAG HYDROX/AL HYDROX/SIMETH 30 ML UDC PO PRN (21:00)
[2019-08-21] MEDS ORDERED: Z GUARD REMEDY 2 OZ OINT TP PRN (21:00)
[2019-08-21] MEDS ORDERED: MISCELLANEOUS MED 1 EA EA PO PRN (21:30)
--- NOTE | 2019-08-21 21:51 | NUR ---
CALLED 2ND TIME FOR TELE BED
--- NOTE | 2019-08-21 21:56 | NUR ---
BED 114-2
[2019-08-21] MEDS ORDERED: CLONIDINE HCL 0.2MG/24H PTWK 1 EA PATCH TD SCH (22:00)
--- NOTE | 2019-08-21 22:01 | NUR ---
URINE COLLECTED SENT TO LAB
--- NOTE | 2019-08-21 22:05 | NUR ---
report given brandt to continue princess
--- NOTE | 2019-08-21 22:20 | NUR ---
MS RN NOTE PT ARRIVED TO FLOOR VIA VANDANA ACCOMPANIED BY ER STAFF. PT IN STABLE CONDITION A/O X4, NO SIGNS OF SOB OR DISTRESS, NO C/O PAIN OR N/V. IV IN R FA #[address] ALL CURRENT NEEDS ATTENDED TO. BED LOW, LOCKED, UPPER RAILS UP, AND CALL LIGHT WITHIN REACH. WILL CONT TO MONITOR. PT REFUSED BODY TO BE ASSESSED, AND BELONGINGS TO BE CHECKED. RISKS AND BENEFITS MADE AWARE WITH VERBALIZATION OF UNDERSTANDING. GUSTAVO MADE AWARE OF PT ARRIVAL TO FLOOR.
[2019-08-21] MEDS: CLONIDINE HCL 0.1 MG TABLET PO PRN (22:41)
[2019-08-21] MEDS: ATORVASTATIN 40 MG TABLET PO SCH (22:41)
--- NOTE | 2019-08-21 22:41 | NUR ---
MS RN NOTE PT NOTED WITH BP: 197/96. PRN CLONIDINE 0.2 MG PO GIVEN, WILL CONT TO MONITOR. PER PT. BP IS ALWAYS HIGH.
[2019-08-21 22:44] VITALS: BP 197/86
[2019-08-21] MEDS: HYDROCODONE/APAP 5/325MG 1 EACH TABLET PO PRN (22:51)
[2019-08-22] VITALS (7 sets, daily range): BP systolic 159–197; BP diastolic 74–96
[2019-08-22] MEDS: BENZONATATE 100 MG CAPSULE PO PRN ×2 (00:10→13:29)
[2019-08-22] MEDS: TEMAZEPAM 15 MG CAPSULE PO PRN ×2 (00:10→21:38)
[2019-08-22] MEDS: CLONIDINE HCL 0.1 MG TABLET PO PRN ×2 (05:32→21:38)
--- NOTE | 2019-08-22 05:36 | NUR ---
MS RN NOTE PRN CLONIDINE 0.2 MG PO GIVEN FOR BP: 170/86, WILL CONT. TO MONITOR.
[2019-08-22 06:25] LABS: BASOPHILS % (AUTO) 0.9 % (0.0-2.0); EOSINOPHILS % (AUTO) 9.9 % (0.0-6.0); HEMATOCRIT 24 % (39-51); HEMOGLOBIN 7.8 g/dL (13.5-17.5); LYMPHOCYTES # (AUTO) 0.7 /CMM (0.8-4.8); MEAN CORPUSCULAR HGB CONC 33 g/dl (31.0-36.0); MEAN CORPUSCULAR VOLUME 115 fL (80-96); MONOCYTES # (AUTO) 0.7 /CMM (0.1-1.30); MONOCYTES % (AUTO) 13.7 % (2.0-12.0); NEUTROPHILS # (AUTO) 3.2 /CMM (1.8-8.9); NEUTROPHILS % (AUTO) 62.5 % (43.0-81.0); PLATELET COUNT (AUTO) 124 /CMM (150-450); RED BLOOD CELL COUNT(AUTO) 2.04 MIL/uL (4.5-6.0); WHITE BLOOD COUNT (AUTO) 5.1 K/uL (4.3-11.0)
--- NOTE | 2019-08-22 06:30 | NUR ---
MS RN NOTE PT REMAINS IN STABLE CONDITION A/O X4, NO SIGNS OF SOB OR DISTRESS, NO C/O PAIN OR N/V. IV IN R FA #[address] S/L. ALL CURRENT NEEDS ATTENDED TO. BED LOW, LOCKED, UPPER RAILS UP, AND CALL LIGHT WITHIN REACH. WILL CONT TO MONITOR AND ENDORSE TO NEXT SHIFT FOR VIKARM.
[2019-08-22 06:31] LABS: CALCIUM, SERUM 9.3 mg/dL (8.5-10.1); CARBON DIOXIDE 29 mmol/L (21-32); CHLORIDE 103 mmol/L (98-107); CREATININE 6.5 mg/dL (0.6-1.3); GLUCOSE 86 mg/dL (74-106); MAGNESIUM 1.5 mg/dL (1.8-2.4); PHOSPHORUS 5.7 mg/dL (2.5-4.9); POTASSIUM 5.5 mmol/L (3.5-5.1); SODIUM SERUM 140 mmol/L (136-145); UREA NITROGEN, BLOOD 71 mg/dL (7-18)
[2019-08-22 06:47] LABS: CHOLESTEROL 99 mg/dL (<200); HDL CHOLESTEROL 56 mg/dL (40-60); LDL 39 mg/dL (0-99); TRIGLYCERIDES 10 mg/dL (30-150)
[2019-08-22] MEDS ORDERED: CLONIDINE HCL 0.2MG/24H PTWK 1 EA PATCH TD SCH (07:00)
--- NOTE | 2019-08-22 07:09 | NUR ---
INITIAL PT REMAINS IN STABLE CONDITION A/O X4, NO SIGNS OF SOB OR DISTRESS, NO C/O PAIN OR N/V. IV IN R FA #[address] S/L. ALL CURRENT NEEDS ATTENDED TO. BED LOW, LOCKED, UPPER RAILS UP, AND CALL LIGHT WITHIN REACH. WILL CONT TO MONITOR .
[2019-08-22] MEDS: SEVELAMER CARBONATE 800 MG TABLET PO SCH ×3 (07:49→17:11)
[2019-08-22] MEDS: ACETAMINOPHEN 325 MG TABLET PO PRN (07:54)
[2019-08-22] MEDS ORDERED: LABETALOL HCL 300 MG TABLET PO SCH (09:00)
[2019-08-22] MEDS: AMLODIPINE BESYLATE 10 MG TABLET PO SCH (09:11)
[2019-08-22] MEDS: MULTIVITAMINS,THERAGRAN 1 UDTAB TABLET PO SCH (09:12)
[2019-08-22] MEDS: DIVALPROEX SODIUM 250 MG TABLET.DR PO SCH ×2 (09:12→17:12)
[2019-08-22] MEDS: VIT B CMPLX 3/FA/VIT C/BIOTIN 1 TAB TABLET PO SCH (09:12)
[2019-08-22] MEDS: LABETALOL HCL (100MG) 100 MG TABLET PO SCH ×2 (09:12→17:12)
[2019-08-22] MEDS: clonazePAM 0.5 MG TABLET PO SCH ×3 (09:13→17:11)
[2019-08-22] MEDS: OLANZAPINE 2.5 MG TABLET PO SCH ×2 (09:13→17:11)
[2019-08-22] MEDS: hydrALAZINE HCL 50 MG TABLET PO SCH ×3 (09:13→17:12)
[2019-08-22] MEDS: risperiDONE 1 MG TABLET PO SCH (09:14)
[2019-08-22] MEDS: PROSOURCE / PROSTAT (PYXIS) 30 ML UDC PO SCH ×2 (09:15→17:08)
[2019-08-22] MEDS ORDERED: EPOETIN ALFA (20,000 UNIT) 20,000 UNIT/ML VIAL IV ONE (10:00)
--- NOTE | 2019-08-22 18:24 | NUR ---
CLOSING PT REMAINS IN STABLE CONDITION A/O X4, NO SIGNS OF SOB OR DISTRESS, NO C/O PAIN OR N/V. IV IN R FA #[address] S/L. ALL CURRENT NEEDS ATTENDED TO. BED LOW, LOCKED, UPPER RAILS UP, AND CALL LIGHT WITHIN REACH. WILL CONT TO MONITOR AND ENDORSE TO PM SHIFT FOR CONTINUITY OF CARE.
[2019-08-22] MEDS: HYDROCODONE/APAP 5/325MG 1 EACH TABLET PO PRN (19:52)
--- NOTE | 2019-08-22 20:00 | NUR ---
MS RN NOTES PT REFUSED TO HAVE VS CHECKED. EXPLAINED TO PT IMPORTANCE OF VS IN HIS POC BUT PT STILL REFUSED. WILL CONTINUE TO MONITOR.
[2019-08-22] MEDS: ATORVASTATIN 40 MG TABLET PO SCH (21:38)
--- NOTE | 2019-08-23 04:00 | NUR ---
MS RN NOTES PT REFUSED TO HAVE VS CHECKED. EXPLAINED TO PT IMPORTANCE OF VS IN HIS POC BUT PT STILL REFUSED. WILL CONTINUE TO MONITOR.
--- NOTE | 2019-08-23 06:26 | NUR ---
MS RN NOTES AWAKE & RESPONSIVE. NOT IN ANY DISTRESS. NO SOB NOTED. DENIES ANY PAIN OR DISCOMFORT AT THIS TIME. WITH IV-HL PATENT & INTACT. CALL LIGHT WITHIN REACH. BED IN LOWEST POSITION. SR UP X 3 WITH BED ALARM ON FOR SAFETY. WILL ENDORSE TO NEXT SHIFT.
[2019-08-23 06:30] VITALS: BP 184/82
[2019-08-23 07:17] LABS: BASOPHILS # (AUTO) 0.1 /CMM (0.0-0.2); EOSINOPHILS % (AUTO) 7.5 % (0.0-6.0); HEMATOCRIT 23 % (39-51); HEMOGLOBIN 7.8 g/dL (13.5-17.5); LYMPHOCYTES # (AUTO) 0.5 /CMM (0.8-4.8); LYMPHOCYTES % (AUTO) 9.5 % (20.0-44.0); MEAN CORPUSCULAR HGB CONC 33 g/dl (31.0-36.0); MEAN CORPUSCULAR VOLUME 116 fL (80-96); MONOCYTES # (AUTO) 0.6 /CMM (0.1-1.30); MONOCYTES % (AUTO) 10.9 % (2.0-12.0); NEUTROPHILS % (AUTO) 71.1 % (43.0-81.0); PLATELET COUNT (AUTO) 122 /CMM (150-450); RED BLOOD CELL COUNT(AUTO) 2.01 MIL/uL (4.5-6.0); WHITE BLOOD COUNT (AUTO) 5.7 K/uL (4.3-11.0)
[2019-08-23 07:28] LABS: ALANINE AMINOTRANSFERASE 8 U/L (12-78); ALBUMIN 2.6 g/dL (3.4-5.0); ALKALINE PHOSPHATASE 79 U/L (46-116); ASPARTATE AMINOTRANSFERASE 12 U/L (15-37); BILIRUBIN,TOTAL 0.8 mg/dL (0.2-1.0); CALCIUM, SERUM 9.4 mg/dL (8.5-10.1); CARBON DIOXIDE 30 mmol/L (21-32); CHLORIDE 104 mmol/L (98-107); CREATININE 5.9 mg/dL (0.6-1.3); GLUCOSE 116 mg/dL (74-106); MAGNESIUM 1.5 mg/dL (1.8-2.4); PHOSPHORUS 5.2 mg/dL (2.5-4.9); POTASSIUM 4.7 mmol/L (3.5-5.1); SODIUM SERUM 140 mmol/L (136-145); TOTAL PROTEIN, SERUM 5.2 g/dL (6.4-8.2); UREA NITROGEN, BLOOD 52 mg/dL (7-18)
--- NOTE | 2019-08-23 07:56 | NUR ---
M/S RN OPENING NOTES RECEIVED PT ON BED, A/O X4. RESPIRATION EVEN AND NON LABORED WITH NO ACUTE RESPIRATORY DISTRESS, ON O2 AT 2LPM. HOB ELEVATED. SKIN WARM TO TOUCH AND DRY. REFUSED TO BE TOUCHED ON ABDOMEN, URINAL ON BEDSIDE AND ABLE TO URINATE 10 CC. PT DENIES PAIN AND DISCOMFORT. IV SITE AT RFA #20 WITH NO S/SX ON INFILTRATION ON SITE, RIGHT CHEST WALL HD CATH DRESSING CLEAN AND DRY. LAST DIALYSIS 08/22/2019 WITH 2L OUT PER REPORT. ALL CONCERNS ATTENDED AT THIS TIME. CALL LIGHT WITHIN REACH. WHEELCHAIR NEAR BED FOR TRANSFER. BED IN LOW LOCKED POSITION. WILL CONTINUE TO EVALUATE CARE
[2019-08-23 08:00] VITALS: BP 201/98
[2019-08-23] MEDS: DIVALPROEX SODIUM 250 MG TABLET.DR PO SCH ×2 (08:13→17:06)
[2019-08-23] MEDS: VIT B CMPLX 3/FA/VIT C/BIOTIN 1 TAB TABLET PO SCH (08:13)
[2019-08-23] MEDS: MULTIVITAMINS,THERAGRAN 1 UDTAB TABLET PO SCH (08:13)
[2019-08-23] MEDS: clonazePAM 0.5 MG TABLET PO SCH ×3 (08:13→17:06)
[2019-08-23] MEDS: LABETALOL HCL (100MG) 100 MG TABLET PO SCH ×2 (08:13→17:06)
[2019-08-23] MEDS: AMLODIPINE BESYLATE 10 MG TABLET PO SCH (08:13)
[2019-08-23] MEDS: SEVELAMER CARBONATE 800 MG TABLET PO SCH ×3 (08:13→17:06)
[2019-08-23] MEDS: hydrALAZINE HCL 50 MG TABLET PO SCH ×3 (08:13→17:06)
[2019-08-23] MEDS: OLANZAPINE 2.5 MG TABLET PO SCH ×2 (08:13→17:06)
[2019-08-23] MEDS: risperiDONE 1 MG TABLET PO SCH (08:13)
[2019-08-23] MEDS: PROSOURCE / PROSTAT (PYXIS) 30 ML UDC PO SCH ×2 (08:19→17:05)
[2019-08-23 08:56] VITALS: BP 201/98
--- NOTE | 2019-08-23 10:30 | NUR ---
M/S RN NOTES PT HAD BM, FLUSHED THE TOILET AFTER. MADE AWARE THAT STOOL NEEDED FOR STOOL OB. PT TO TELL NURSE IF HAD A BM, PT UNDERSTOOD PLAN OF CARE
--- NOTE | 2019-08-23 14:20 | NUR ---
M/S RN NOTES PT ASLEEP COMFORTABLY, NO CONCERNS ADDRESSED. WILL CONTINUE TO MONITOR CARE.
[2019-08-23 16:00] VITALS: BP 169/87
[2019-08-23 16:14] VITALS: BP 169/87
[2019-08-23] MEDS: HYDROCODONE/APAP 5/325MG 1 EACH TABLET PO PRN (18:36)
--- NOTE | 2019-08-23 18:54 | NUR ---
M/S RN CLOSING NOTES PT A/O 3-4, RESPONSIVE TO ALL STIMULI. PT COMPLIANT WITH MEDICATION AND TREATMENT, NO AH/VH, AGGRESSIVE BEHAVIOR NOTED. ASSESSED NO ACUTE RESPIRATORY DISTRESS, ON O2 AT 2LPM VIA NASAL CANNULA DUE TO SOB IN MINIMAL EXERTION, REPOSITIONING, BED PLACED ON SEMI FOWLERS FOR COMFORT. NORCO 5/325 MG TAB ORDERED FOR PAIN GIVEN DUE TO LEFT HIP PAIN SCALE OF 7/10 AT 1836, RE-ASSESSMENT AT 1936 FOR EFFECTIVENESS. SKIN WARM TO TOUCH AND DRY. NO NEW OPEN SKIN BREAKDOWN. RIGHT FA #20 PATENT IN FLUSHING, RIGHT CHEST WALL HD CATH DRESSING INTACT. BED LOCKED, LOW, SIDE RAILS X2 FOR SAFETY. CALL LIGHT WITHIN REACH. ALL CONCERNS ATTENDED. ENDORSED PT CARE TO NEXT SHIFT.
--- NOTE | 2019-08-23 19:00 | NUR ---
MS RN OPENING NOTES Received patient awake on bed, complaining abdominal discomfort. Repositioned patient into Roper's position, repositioned to right side, patient claimed discomfort was alleviated. On O2 via NC @2LPM, no respiratory distress noted at this time. Kept on bed clean, dry and comfortable. Call light within easy reach. On fall and aspiration precautions. Call light within easy reach. Will continue to monitor accordingly.
[2019-08-23 20:00] VITALS: BP 171/86
[2019-08-23] MEDS: ACETAMINOPHEN 325 MG TABLET PO PRN (20:38)
[2019-08-23] MEDS: TEMAZEPAM 15 MG CAPSULE PO PRN (20:38)
[2019-08-23] MEDS: ATORVASTATIN 40 MG TABLET PO SCH (21:10)
[2019-08-24] MEDS: HYDROCODONE/APAP 5/325MG 1 EACH TABLET PO PRN (03:55)
[2019-08-24] MEDS: CLONIDINE HCL 0.1 MG TABLET PO PRN (04:55)
--- NOTE | 2019-08-24 06:54 | NUR ---
MS RN CLOSING NOTES Patient asleep at this time, no discomfort noted. Bed bath done by the SLIDE FORMING MACHINE OPERATOR. No aggressive behavior noted within the shift. All nursing needs attended. Due meds given as ordered. Kept on bed clean, dry and comfortable. On fall and aspiration precautions. Endorsed.
[2019-08-24 08:00] VITALS: BP 202/102
[2019-08-24] MEDS: SEVELAMER CARBONATE 800 MG TABLET PO SCH ×3 (08:00→12:26)
--- NOTE | 2019-08-24 08:00 | NUR ---
MS1/RN AM SHIFT OPENING NOTES RECEIVED PT AWAKE SITTING IN BED, PT A/O X 3-4, DENIES ANY SYMPTOMS, NO ACUTE CHANGE OF CONDITION NOTED. ON 2L O2 VIA N/C SATURATING @ 95%, RESPIRATIONS EVEN & UNLABORED, LUNG SOUNDS CLEAR. IV SITE FLUSHED, PATENT WITH NO S/S OF INFECTION. HD CATHETER IN RIGHT CHEST WALL, INTACT, DRESSING CLEAN & DRY. PT NOTED WITH ELEVATED BP 202/102, EXPECTED TO HAVE HD TODAY. PT IS COMFORTABLE, SCHEDULED AM MEDS TO BE GIVEN. CL WITHIN REACHED AND SAFETY MAINTAINED. ON GOING MONITORING. Addendum: 08/24/19 at 0936 by GABE PROCTOR RN ADDENDUM: PT REFUSED SCHEDULED RENAGEL AND DEPAKOTE. RISKS AND BENEFITS EXPLAINED, PT VERBALIZED UNDERSTANDING.
[2019-08-24] MEDS: PROSOURCE / PROSTAT (PYXIS) 30 ML UDC PO SCH (08:21)
[2019-08-24] MEDS: MULTIVITAMINS,THERAGRAN 1 UDTAB TABLET PO SCH (08:22)
[2019-08-24] MEDS: hydrALAZINE HCL 50 MG TABLET PO SCH ×2 (08:22→12:26)
[2019-08-24] MEDS: OLANZAPINE 2.5 MG TABLET PO SCH (08:22)
[2019-08-24] MEDS: clonazePAM 0.5 MG TABLET PO SCH ×2 (08:23→12:26)
[2019-08-24] MEDS: LABETALOL HCL (100MG) 100 MG TABLET PO SCH (08:23)
[2019-08-24] MEDS: AMLODIPINE BESYLATE 10 MG TABLET PO SCH (08:23)
[2019-08-24] MEDS: risperiDONE 1 MG TABLET PO SCH (08:23)
[2019-08-24] MEDS: VIT B CMPLX 3/FA/VIT C/BIOTIN 1 TAB TABLET PO SCH (08:23)
[2019-08-24] MEDS: DIVALPROEX SODIUM 250 MG TABLET.DR PO SCH (08:24)
--- NOTE | 2019-08-24 10:00 | NUR ---
MS1/RN ROUNDS - DR. PAL UPDATED PT'S CONDITION. PER DR. PAL, PT TO BE DISCHARGE AFTER DIALYSIS TX. MONITORING CONTINUED.
--- NOTE | 2019-08-24 10:32 | NUR ---
ACIDIZER WATER WELL received a call from pt's RN Laurie stating pt. wants to speak with SW. However, pt 's concern is regarding his SNF facility and pt not wanting to return there. ACIDIZER WATER WELL informed GOMEZ Sullivan, pt needs to consult with nurse outreach case manager.
[2019-08-24 12:26] VITALS: BP 154/82
--- NOTE | 2019-08-24 12:53 | NUR ---
MS1/RN HD - COMPLETED PT TOLERATED DIALYSIS TX, REMOVED 2L. MONITORING CONTINUED.
--- NOTE | 2019-08-24 13:25 | NUR ---
MS1/RN REPORT - SNF REPORT GIVEN TO GOMEZ DAVENPORT. SCHEDULED PICK-UP TIME AT 1430.
--- NOTE | 2019-08-24 13:55 | NUR ---
MS1/TITLE MANAGER REPORT GIVEN TO TRANSPORT PERSONNEL. DISCHARGE INSTRUCTIONS AND DOCUMENTS GIVEN TO TRANSPORT PERSONNEL. IV SITE REMOVED, PRESSURE DRESSING APPLIED, NO S/S OF INFECTION. ID BAND REMOVED. PT LEFT VIA GURNEY IN STABLE CONDITION.
== END 2019-08-24 15:24 | DRG 640 ==
LOC: ER 17:43 → TELE1 22:10 → MEDSG1 22:33
PROVIDERS: ADMIT Nurse Practitioner Acute Care
PROC: 5A1D70Z Performance of Urinary Filtration, Intermittent, Less than 6 Hours Per Day (ICD-10-PCS; principal; 2019-08-22)
DX: E87.5 Hyperkalemia (principal); G93.41 Metabolic encephalopathy; N18.6 End stage renal disease; E44.0 Moderate protein-calorie malnutrition; I12.0 Hypertensive chronic kidney disease with stage 5 chronic kidney disease or end stage renal disease; N25.81 Secondary hyperparathyroidism of renal origin; Z99.2 Dependence on renal dialysis; F25.9 Schizoaffective disorder, unspecified; Z91.15 Patient's noncompliance with renal dialysis; I25.10 Atherosclerotic heart disease of native coronary artery without angina pectoris; F32.9 Major depressive disorder, single episode, unspecified; E78.5 Hyperlipidemia, unspecified; D69.6 Thrombocytopenia, unspecified; Z79.899 Other long term (current) drug therapy; Z79.82 Long term (current) use of aspirin; J45.909 Unspecified asthma, uncomplicated; I25.2 Old myocardial infarction; F41.9 Anxiety disorder, unspecified; G20 Parkinson's disease; D63.8 Anemia in other chronic diseases classified elsewhere; G89.29 Other chronic pain
CPT/HCPCS: 36415; 71045-TC; 80048-TC; 80053-TC; 80061-TC; 80305; 83735-TC; 84100-TC; 84443-TC; 85025-TC; 87081-TC; 90935-TC; 97112-TC; 97530-TC; G0378; G0480; J0885

== ENCOUNTER 2020-01-31 10:47 | Inpatient (IN) | payer MEDICARE, OTHER ==
[~2020-01-31] VITALS: Ht 167.6 cm; Wt 67.1 kg
[~2020-01-31 10:47] MED LIST changes: +AMIN887L PO; -ASPI-1169 PO; +BENZ-13 PO; -CARV6.252 PO; -CEFU500T66 PO; -CLON0.3T PO; +DIVA500T2 PO; -DOXY100C2 PO; -FAMO20TA8 PO; +FOLI0.8T2 PO; -HYDR-4077 PO; +HYDR100T27 PO; +IPRA12.9 IH; +LABE300T2 PO; +LOSA100T3 PO; -MINO2.5T PO; +MULT-439 PO; +OLAN2.5T3 PO; +PANT40TA2 PO; -POLY17PO4 PO; -SENN-168 PO; -TRAM50TA2 PO
--- NOTE | 2020-01-31 11:02 | NUR ---
BENJA WILBURN 38 from [facility] "missed dialysis/HTN was given hydralazine NOT effective". to ER bed 6, hooked to monitor and pox, noted with high BP, attempted to sart IV peripheral line and collect blood sample but patient refused. Mentioned "I only want dialysis". Dr Dobbins at bedside
--- NOTE | 2020-01-31 11:11 | NUR ---
PATIENT REFUSED TO START IV PERIPHERAL LINE. AWARE.
--- NOTE | 2020-01-31 11:14 | NUR ---
MOVE SHEET SUBMITTED TO ADMITTING AND CALLED FOR TELE BED.
--- NOTE | 2020-01-31 11:22 | NUR ---
hoisting laborer at bedside, refused blood draw, made aware
--- NOTE | 2020-01-31 11:22 | NUR ---
CALLED DR. DEMARCO JANE OK.
--- NOTE | 2020-01-31 11:27 | NUR ---
LUNA CALLED ITS JANETH
[2020-01-31] MEDS ORDERED: CARV12.52 PO (11:33)
[2020-01-31] MEDS ORDERED: ISOS30TA6 PO (11:33)
[2020-01-31] MEDS ORDERED: ISOS60TA4 PO (11:33)
[2020-01-31] MEDS ORDERED: SENN-175 PO (11:33)
[2020-01-31] MEDS ORDERED: ASPI-605 PO (11:33)
[2020-01-31] MEDS ORDERED: ACET325C7 PO (11:33)
[2020-01-31] MEDS ORDERED: ALBU18HF2 IH (11:33)
[2020-01-31] MEDS ORDERED: CLOP75TA15 PO (11:33)
[2020-01-31] MEDS ORDERED: SODI15OR5 PO (11:33)
[2020-01-31] MEDS ORDERED: CHOL100040 PO (11:33)
[2020-01-31] MEDS ORDERED: NIFE-34 PO (11:33)
[2020-01-31] MEDS ORDERED: CALC667T2 PO (11:33)
--- NOTE | 2020-01-31 12:08 | NUR ---
GOT BED 101
--- NOTE | 2020-01-31 12:40 | NUR ---
REPORT GIVEN TO SOON RN OF TELE UNIT
[2020-01-31 13:00] VITALS: BP 148/77
--- NOTE | 2020-01-31 13:00 | NUR ---
RN OPENING NOTES Received patient from ER via refugio, A/O x3, on Room air, no IV line noted, non ambulatory. Safety measures implemented, bed in lowest position, call light within reach, will cont to monitor
--- NOTE | 2020-01-31 13:15 | NUR ---
PATIENT REFUSED IV LINE
[2020-01-31] MEDS ORDERED: ONDANSETRON HCL/PF 4 MG/2 ML VIAL IVP PRN (13:30)
[2020-01-31] MEDS ORDERED: Z GUARD REMEDY 2 OZ OINT TP PRN (13:30)
[2020-01-31] MEDS ORDERED: ZOLPIDEM TARTRATE 5 MG TABLET PO PRN (13:30)
[2020-01-31] MEDS ORDERED: HYDROCODONE/APAP 5/325MG 1 EACH TABLET PO PRN (13:30)
[2020-01-31 16:00] VITALS: BP 148/76
--- NOTE | 2020-01-31 17:35 | NUR ---
PATIENT COMPLAINS OF SEVERE HEADACHE 02/21, WILL ADMINISTER PRN PAIN MED
--- NOTE | 2020-01-31 18:49 | NUR ---
RN CLOSING NOTES PATIENT REMAINS IN BED, ON ROOM AIR TOLERATING WELL, REFUSING LAB DRAW, A/OX2, COMFORT NEEDS ARE MET, SAFETY MEASURES IMPLEMENTED, BED IN LOWEST POSITION, CALL LIGHT WITHIN REACH, WILL ENDORSE TO PM SHIFT FOR VIKRAM
[2020-01-31 20:00] VITALS: BP 163/84
[2020-01-31] MEDS ORDERED: ISOSORBIDE MONONITRATE 60 MG TAB.SR.24H PO SCH (22:00)
[2020-01-31] MEDS ORDERED: IPRATROPIUM NEB FS 0.5 MG/2.5 ML AMPUL.NEB NEB PRN (22:30)
[2020-01-31] MEDS: ATORVASTATIN 40 MG TABLET PO SCH (22:45)
[2020-01-31] MEDS: SENNOSIDES 8.6 MG TABLET PO SCH (22:45)
[2020-01-31] MEDS: hydrALAZINE HCL 50 MG TABLET PO SCH (22:45)
[2020-01-31] MEDS ORDERED: ISOSORBIDE MONONITRATE (30MG) 30 MG TAB.SR.24H PO ONE (22:46)
[2020-02-01] VITALS: BP 167/82
[2020-02-01] MEDS ORDERED: ALBUTEROL FS 2.5 MG/3 ML VIAL.NEB NEB PRN (01:30)
[2020-02-01 04:00] VITALS: BP 169/83
[2020-02-01] MEDS: ACETAMINOPHEN 325 MG TABLET PO PRN ×2 (04:03→22:54)
--- NOTE | 2020-02-01 05:50 | NUR ---
RN notes In bed, resting comfortably. No respiratory distress, breathing even and unlabored. Room air well tolerated. Complained of headache, tylenol 650mg given with relief. Patient refused to have IV line inserted and refused blood draw. Offered x 3 and explained risk and benefits each time. Patient also refused to be changed or cleanse. Needs attended. Will endorse to next shift for continuity of care.
--- NOTE | 2020-02-01 07:21 | NUR ---
INDUSTRIAL STAFF NURSE OPENING NOTES RECEIVED PATIENT IN BED, AWAKE, A/O X3. PATIENT ON ROOM AIR; BREATHING EVEN AND UNLABORED; NO SOB PRESENT AT THIS MOMENT. NO COMPLAINS OF PAIN AT THIS TIME. PATIENT REFUSING IV LINE. SAFETY PRECAUTIONS IN PLACE; BED IN LOW POSITION AND LOCKED, RAILS UP X2, CALL LIGHT WITHIN REACH. WILL CONTINUE TO MONITOR PATIENT.
[2020-02-01 08:06] VITALS: BP 160/86
[2020-02-01] MEDS: CALCIUM ACETATE 667 MG TABLET PO SCH ×3 (08:18→17:10)
[2020-02-01] MEDS: ASPIRIN EC 81 MG TABLET.DR PO SCH (08:18)
[2020-02-01] MEDS: hydrALAZINE HCL 50 MG TABLET PO SCH ×3 (08:18→17:10)
[2020-02-01] MEDS: ISOSORBIDE MONONITRATE (30MG) 30 MG TAB.SR.24H PO SCH ×2 (08:18→21:02)
[2020-02-01] MEDS: PANTOPRAZOLE 40 MG TABLET.DR PO SCH (08:19)
[2020-02-01] MEDS: CLOPIDOGREL BISULFATE 75 MG TABLET PO SCH (08:19)
[2020-02-01] MEDS: CARVEDILOL 12.5 MG TABLET PO SCH ×2 (08:19→20:42)
[2020-02-01] MEDS: NIFEdipine XL 60 MG TAB PO SCH (08:19)
[2020-02-01] MEDS: DIVALPROEX SODIUM 250 MG TABLET.DR PO SCH ×2 (08:19→20:41)
[2020-02-01] MEDS: LOSARTAN POTASSIUM 50 MG TABLET PO SCH (08:20)
[2020-02-01 12:00] VITALS: BP 195/84
[2020-02-01 13:23] LABS: BASOPHILS % (AUTO) 1.3 % (0.0-2.0); EOSINOPHILS % (AUTO) 10.4 % (0.0-6.0); HEMATOCRIT 25 % (39-51); HEMOGLOBIN 8.2 g/dL (13.5-17.5); LYMPHOCYTES # (AUTO) 0.4 /CMM (0.8-4.8); LYMPHOCYTES % (AUTO) 12.3 % (20.0-44.0); MEAN CORPUSCULAR HGB CONC 33 g/dl (31.0-36.0); MEAN CORPUSCULAR VOLUME 118 fL (80-96); MONOCYTES # (AUTO) 0.4 /CMM (0.1-1.30); MONOCYTES % (AUTO) 11.2 % (2.0-12.0); NEUTROPHILS # (AUTO) 2.2 /CMM (1.8-8.9); NEUTROPHILS % (AUTO) 64.8 % (43.0-81.0); PLATELET COUNT (AUTO) 125 /CMM (150-450); RED BLOOD CELL COUNT(AUTO) 2.12 MIL/uL (4.5-6.0); WHITE BLOOD COUNT (AUTO) 3.4 K/uL (4.3-11.0)
[2020-02-01 13:35] LABS: CALCIUM, SERUM 9.8 mg/dL (8.5-10.1); CARBON DIOXIDE 29 mmol/L (21-32); CHLORIDE 104 mmol/L (98-107); CREATININE 7.4 mg/dL (0.6-1.3); GLUCOSE 103 mg/dL (74-106); SODIUM SERUM 141 mmol/L (136-145); UREA NITROGEN, BLOOD 75 mg/dL (7-18)
[2020-02-01 13:40] LABS: ALANINE AMINOTRANSFERASE 8 U/L (12-78); ALBUMIN 2.7 g/dL (3.4-5.0); ALKALINE PHOSPHATASE 139 U/L (46-116); ASPARTATE AMINOTRANSFERASE 13 U/L (15-37); BILIRUBIN,TOTAL 0.4 mg/dL (0.2-1.0); MAGNESIUM 2.2 mg/dL (1.8-2.4); PHOSPHORUS 4.2 mg/dL (2.5-4.9); TOTAL PROTEIN, SERUM 5.2 g/dL (6.4-8.2)
--- NOTE | 2020-02-01 13:59 | NUR ---
LEAD DATABASE ADMINISTRATOR NOTES PATIENT AFTER DIALYSES. 2 L OUT. BP: 199/70 HR: 64 1300 MEDICATIONS GIVEN. WILL REASSESS BP
--- NOTE | 2020-02-01 15:09 | NUR ---
LEVERMAN NOTES BP AT 1500 158/85 HR 70 PATIENT DENIES ANY PAIN AND IS COMFORTABLY RESTING.
[2020-02-01 16:07] VITALS: BP 144/90
--- NOTE | 2020-02-01 18:42 | NUR ---
ANTISQUEAK FILLER CLOSING NOTES PATIENT IN BED, AWAKE, A/O X3 AND WATCHING TV. PATIENT ON ROOM AIR; BREATHING EVEN AND UNLABORED; NO SOB PRESENT AT THIS MOMENT. NO COMPLAINS OF PAIN DURING THE SHIFT. PATIENT REFUSING IV LINE. HAS DIALYSES TODAY WITH 2L OUT. ALL NEEDS ATTENDED TO THROUGHOUT THE DAY. SAFETY PRECAUTIONS IN PLACE; BED IN LOW POSITION AND LOCKED, RAILS UP X2, CALL LIGHT WITHIN REACH. WILL ENDORSE TO INSTALLMENT AGENT NURSE.
--- NOTE | 2020-02-01 19:48 | NUR ---
HAZARDOUS MATERIALS ANALYST OPENING NOTES RECEIVED PATIENT RESTING IN BED COMFORTABLY; A/OX3; BREATHING EVEN AND UNLABORED; TOLERATING ROOM AIR WELL; SATTING AT 99%; NO SOB NOTED; NO DISTRESS NOTED; TELE MONITOR ATTACHED READS NSR 69BPM; PER MORNING SHIFT, BLOOD PRESSURE IN 190/89S RANGE BEFORE TAKING BLOOD PRESSURE MEDICATION; CURRENT VITAL SIGNS 189/88; WILL CONT TO MONITOR; PER AM SHIFT, PATIENT ALSO REFUSING IV ACCESS AND MD IS AWARE; ISOLATION PRECAUTIONS MAINTAINED; SAFETY PRECAUTIONS IMPLEMENTED; BED LOCKED IN LOW POSITION; SIDE RAILSX2; CALL LIGHT WITHIN EASY REACH; WILL CONT TO MONITOR
[2020-02-01 20:00] VITALS: BP 189/88
[2020-02-01] MEDS: ATORVASTATIN 40 MG TABLET PO SCH (21:01)
[2020-02-01] MEDS: SENNOSIDES 8.6 MG TABLET PO SCH (21:02)
--- NOTE | 2020-02-01 23:00 | NUR ---
CLIMATE CHANGE RISK ASSESSOR NOTES PATIENT REQUESTING TYLENOL FOR HEADACHE; TYLENOL GIVEN PER MD ORDER; WILL CONT TO MONITOR
--- NOTE | 2020-02-01 23:59 | NUR ---
LION TRAINER NOTES BP NOW 186/91 HR: 69, TELE MONITOR SHOWS NSR WITH 69BPM; CHARGE NURSE AWARE; MADE AWARE; AWAITING ORDERS; WILL CONT TO MONITOR
[2020-02-02] VITALS (7 sets, daily range): BP systolic 153–199; BP diastolic 64–93
--- NOTE | 2020-02-02 00:09 | NUR ---
ETIQUETTE COACH NOTES PATIENT NO LONGER COMPLAINT OF HEADACHE AND REPORTS TO BE FEELING OKAY; AWAITING FOR MD ORDERS REGARDING PATIENT CURRENT BP; CHARGE NURSE ALSO AWARE
--- NOTE | 2020-02-02 00:48 | NUR ---
QUALITY CONTROL COORDINATOR NOTES PER MD, ORDERED PROCARDIA XL 90MG DAILY FOR PATIENT, FIRST DOSE NOW; AWAITING PHARMACY TO VERIFY ORDER AND WILL ADMINISTER MEDICATION PER MD ORDER; WILL CONT TO MONITOR
[2020-02-02] MEDS: NIFEdipine XL (30MG) 30 MG TAB PO SCH ×2 (01:00→08:32)
--- NOTE | 2020-02-02 04:00 | NUR ---
SEO ASSOCIATE NOTES PATIENT CURRENT BP: 195/93, PATIENT DENIES PAIN; PATIENT REPORTS TO BE FEELING OKAY; TELE MONITOR READS NSR WITH 65BPM; CHARGE NURSE AWARE; MD INFORMED; AWAITING MD RESPONSE
--- NOTE | 2020-02-02 04:52 | NUR ---
STRINGED INSTRUMENT REPAIRER NOTES PER ARMAMENT INSTALLER, PATIENT REFUSED BED BATH; PATIENT WAS ASKED AGAIN, PATIENT STILL REFUSING; RISKS AND BENEFITS DISCUSSED AND REVIEWED WITH PATIENT REGARDING BED BATHS AND CHANGING DURING HOSPITALIZATION; PATIENT KINDLY DECLINED; WILL INFORM DAY SHIFT AND CONT TO MONITOR PATIENT
--- NOTE | 2020-02-02 05:30 | NUR ---
SUPERVISOR EDUCATION NOTES, PATIENT REFUSING TO HAVE IV ACCESS, PATIENT WITH HIGH BLOOD PRESSURE THROUGHOUT THE NIGHT, PO PRN MEDICATION ADMINISTERED ON TOP OF SCHEDULED MEDICATIONS, ANOTHER ORDER FOR IV BLOOD PRESSURE MEDICATION ORDERED, BUT PATIENT REFUSING IV PLACEMENT, EDUCATED ABOUT RISKS AND BENEFITS AND THE RISKS OF HAVING HIGH BLOOD PRESSURE X3, PATIENT STILL REFUSED, MD AWARE.
--- NOTE | 2020-02-02 06:32 | NUR ---
HOSPITAL TECHNICIAN CLOSING NOTES PATIENT RESTING IN BED COMFORTABLY; A/OX2-3; BREATHING EVEN AND UNLABORED; NO SOB NOTED; PATIENT TOLERATING ROOM AIR WELL; CHARGE NURSE AT BEDSIDE, SPOKE WITH PATIENT REGARDING IV ACCESS; PATIENT REFUSED, CHARGE NURSE EDUCATED PATIENT ON RISKS AND BENEFITS, PATIENT STILL REFUSING; MD AWARE OF REFUSAL; PATIENT HAS BEEN REFUSING IV ACCESS SINCE ADMISSION; TELE MONITOR READS NSR 69BPM; PATIENT ABLE TO MAKE NEEDS KNOWN; ALL NEEDS RENDERED; ISOLATION PRECAUTIONS MAINTAINED; SAFETY PRECAUTIONS IMPLEMENTED; WILL ENDORSE VIKRAM TO ONCOMING SHIFT
--- NOTE | 2020-02-02 07:25 | NUR ---
POLICY INTERN NOTES PER MD, ORDER HYDRALAZINE 10MG IV PRN FOR SBP >165; PATIENT DOES NOT HAVE IV ACCESS; MD WAS MADE AWARE; CHARGE NURSE ALSO AWARE; PER CHARGE NURSE, INPUT ORDERS JUST INCASE PATIENT AGREES FOR IV ACCESS; WILL INFORM DAY SHIFT
[2020-02-02] MEDS ORDERED: hydrALAZINE HCL IV 20 MG VIAL IV PRN (07:30)
[2020-02-02] MEDS: CLOPIDOGREL BISULFATE 75 MG TABLET PO SCH (08:30)
[2020-02-02] MEDS: DIVALPROEX SODIUM 250 MG TABLET.DR PO SCH ×2 (08:30→21:17)
[2020-02-02] MEDS: ASPIRIN EC 81 MG TABLET.DR PO SCH (08:31)
[2020-02-02] MEDS: hydrALAZINE HCL 50 MG TABLET PO SCH ×3 (08:31→16:02)
[2020-02-02] MEDS: ISOSORBIDE MONONITRATE (30MG) 30 MG TAB.SR.24H PO SCH ×2 (08:31→21:25)
[2020-02-02] MEDS: CALCIUM ACETATE 667 MG TABLET PO SCH ×3 (08:31→17:16)
[2020-02-02] MEDS: NIFEdipine XL 60 MG TAB PO SCH (08:32)
[2020-02-02] MEDS: CARVEDILOL 12.5 MG TABLET PO SCH ×2 (08:33→21:18)
[2020-02-02] MEDS: PANTOPRAZOLE 40 MG TABLET.DR PO SCH (08:34)
[2020-02-02] MEDS: LOSARTAN POTASSIUM 50 MG TABLET PO SCH (08:37)
--- NOTE | 2020-02-02 09:28 | NUR ---
DR. BARR SEEN AND EVALUATED PATIENT AND ORDERED TO SWAB PATIENT FOR COVID WITH PCR.PRIMARY RN MADE AWARE.
--- NOTE | 2020-02-02 18:25 | NUR ---
PROCESS STRIPPER NOTES PATIENT IN BED RESTING NO SOB OR ACUTE DISTRESS NOTED. PATIENT ALERT, ORIENTED X3. PATIENT S/P HD WITH 2L OUTPUT. PATIENT TOLERATED HD WELL. ALL DUE MEDICATIONS ADMINISTERED. ALL NEEDS MET. PATIENT REUSES IV ACCESS. NO ACUTE CHANGES NOTED DURING AM SHIFT. WILL ENDORSE CARE TO PM SHIFT.
--- NOTE | 2020-02-02 19:30 | NUR ---
RN OPENING NOTES Received client resting in bed. A/O x3. According to previous report the client has been refusing blood draws. The client has also been refusing iv insertion for iv medications. the client had HD on02/02/20 - output 2L. Upon assessment the client continue to refuse iv insertion, to have blood draws. will continue to monitor on that. The MD is aware. At the present time, the client has no s/s of distress. BP 157/70. Other VS wnl. The client denies pain, no s/s of pain. All needs have been rendered at this time. Will contineu to monitor.
[2020-02-02] MEDS: ATORVASTATIN 40 MG TABLET PO SCH (21:17)
[2020-02-02] MEDS: SENNOSIDES 8.6 MG TABLET PO SCH (21:17)
[2020-02-03 00:05] VITALS: BP 155/72
[2020-02-03 04:00] VITALS: BP 154/73
--- NOTE | 2020-02-03 05:44 | NUR ---
RN NOTES The client continues to refuse to have blow drawn fro laboratory studies. The hospitalist aware.
--- NOTE | 2020-02-03 06:48 | NUR ---
RN CLOSING NOTES The client remains stable with no change of condition. A/O x3. No s/s of distress. No s/s of pain, client denies pain. SBP in 150's and DBP in the 80's. The client is on RA, sat at 96 to 100%. Client is on external telemonitor, NSR, HR in the 70's. The client has continually refused to have blood drawn for laboratory studies. The client has refused to have an iv lien, as was previously noted. All needs rendered at this time. Will endorse the incoming shift.
[2020-02-03 08:00] VITALS: BP 181/86
[2020-02-03] MEDS: CARVEDILOL 12.5 MG TABLET PO SCH (08:27)
[2020-02-03] MEDS: ISOSORBIDE MONONITRATE (30MG) 30 MG TAB.SR.24H PO SCH (08:28)
[2020-02-03] MEDS: LOSARTAN POTASSIUM 50 MG TABLET PO SCH (08:28)
[2020-02-03] MEDS: CALCIUM ACETATE 667 MG TABLET PO SCH ×3 (08:28→17:24)
[2020-02-03] MEDS: hydrALAZINE HCL 50 MG TABLET PO SCH ×3 (08:28→17:24)
[2020-02-03] MEDS: CLOPIDOGREL BISULFATE 75 MG TABLET PO SCH (08:28)
[2020-02-03] MEDS: ASPIRIN EC 81 MG TABLET.DR PO SCH (08:28)
[2020-02-03] MEDS: PANTOPRAZOLE 40 MG TABLET.DR PO SCH (08:28)
[2020-02-03] MEDS: DIVALPROEX SODIUM 250 MG TABLET.DR PO SCH (08:28)
--- NOTE | 2020-02-03 09:04 | NUR ---
RN NOTE Notified pharmacy about two different orders for Nifedipine. Per pharmacy, they will contact the ordering provider and confirm the dose. Held Nifedipine at this time.
[2020-02-03] MEDS ORDERED: VALSARTAN 80 MG TABLET PO SCH (10:00)
[2020-02-03] MEDS: NIFEdipine XL (30MG) 30 MG TAB PO SCH (11:14)
[2020-02-03 12:00] VITALS: BP 151/87
--- NOTE | 2020-02-03 15:22 | NUR ---
RN NOTE Patient completed HD with 2L out. BP 171/60, HR 78. Patient remains stable, no signs of acute distress, patient is sleeping in bed at this time.
[2020-02-03 16:00] VITALS: BP 168/83
[2020-02-03 17:24] VITALS: BP 171/86
--- NOTE | 2020-02-03 18:11 | NUR ---
COMPUTER SECURITY MANAGER NOTE Patient is medically cleared for discharge. A/O x3, showing no signs of acute distress or SOB, stable on RA. Patient has no IV line (refused IV insertion) and ID band removed. DC instructions provided to the patient, patient verbalized understanding. SKin assessed, and skin remains intact. S/P HD today with 2L out. All patient needs met, all due medications given. Patient kept clean and dry throughout the shift. Patient picked up by EMS en route to [facility]. Report given to Elizabeth DYER.
== END 2020-02-03 18:29 | DRG 640 ==
LOC: ER 10:54 → TELE1 12:12
PROVIDERS: ADMIT Hospitalist; ATTEND Nurse Practitioner Acute Care
PROC: 5A1D70Z Performance of Urinary Filtration, Intermittent, Less than 6 Hours Per Day (ICD-10-PCS; 2020-02-01)
PROC: 5A1D70Z Performance of Urinary Filtration, Intermittent, Less than 6 Hours Per Day (ICD-10-PCS; principal; 2020-02-02)
PROC: 5A1D70Z Performance of Urinary Filtration, Intermittent, Less than 6 Hours Per Day (ICD-10-PCS; 2020-02-03)
DX: E87.70 Fluid overload, unspecified (principal); N18.6 End stage renal disease; G93.41 Metabolic encephalopathy; E43 Unspecified severe protein-calorie malnutrition; D61.818 Other pancytopenia; I50.32 Chronic diastolic (congestive) heart failure; I13.2 Hypertensive heart and chronic kidney disease with heart failure and with stage 5 chronic kidney disease, or end stage renal disease; Z79.02 Long term (current) use of antithrombotics/antiplatelets; F03.90 Unspecified dementia, unspecified severity, without behavioral disturbance, psychotic disturbance, mood disturbance, and anxiety; Z99.2 Dependence on renal dialysis; I16.0 Hypertensive urgency; I25.10 Atherosclerotic heart disease of native coronary artery without angina pectoris; E78.5 Hyperlipidemia, unspecified; M62.81 Muscle weakness (generalized); Z91.19 Patient's noncompliance with other medical treatment and regimen; Z68.23 Body mass index [BMI] 23.0-23.9, adult; D63.1 Anemia in chronic kidney disease; Q78.9 Osteochondrodysplasia, unspecified; Z91.15 Patient's noncompliance with renal dialysis; J45.909 Unspecified asthma, uncomplicated; F32.9 Major depressive disorder, single episode, unspecified; F25.9 Schizoaffective disorder, unspecified; F41.9 Anxiety disorder, unspecified
CPT/HCPCS: 36415; 71045-TC; 80053-TC; 83735-TC; 84100-TC; 84484-TC; 85025-TC; 85730-TC; 86706; 87081-TC; 87340; 90935-TC; 93307-TC; G0378; U0003-CS